=== PATIENT | male | born 1930 | race Caucasian/White ===

== ENCOUNTER 2019-01-30 08:09 | Inpatient (IN) | payer MEDICARE, OTHER ==
[2019-01-30 08:37] LABS: #Eosinphils 0.1 thou/uL (0.0-0.7); #Lymphocytes 0.7 thou/uL (1.20-3.40); #Monocytes 0.4 thou/uL (0.11-0.59); #Neutrophils 5.1 thou/uL (1.40-6.50); %Basophils 0.2 % (0.0-1.0); %Eosinophils 1.1 % (0.0-10.0); %Lymphocytes 11.2 % (21.0-51.0); %Monocytes 6.4 % (0.0-10.0); %Neutrophils 81.2 % (42.0-75.0); Hemoglobin 12.7 g/dL (14.0-18.0); Mean Corpuscular HGB CONC 31.4 g/dL (32.0-36.0); Mean Corpuscular Hemoglobin 26.6 pg (27.0-31.0); Mean Corpuscular Volume 84.8 fL (78.0-98.0); Mean Platelet Volume 8.4 fL (7.4-10.4); Platelet Count 171 thou/uL (130-400); RBC Distribution Width 13.3 % (11.5-14.5); Red Blood Cell (RBC) Count 4.78 mill/uL (4.70-6.10); White Blood Cell (WBC) Count 6.3 thou/uL (4.8-10.8)
[2019-01-30 08:59] LABS: ALT (SGPT) 10 U/L (8-55); AST (SGOT) 20 U/L (5-34); Alkaline Phosphatase 136 U/L (40-110); Anion Gap 15 mmol/L (10-20); BUN (Urea Nitrogen) 17 mg/dL (8.4-25.7); CK (CPK) 140 U/L (30-200); Calc. Creatinine Clearance 0 mL/min (70-130); Calcium 8.8 mg/dL (7.8-10.44); Carbon Dioxide 27 mmol/L (23-31); Chloride 99 mmol/L (98-107); Estimated GFR-MDRD Greater than 90; Globulin 2.7 g/dL (2.4-3.5); Glucose 86 mg/dL (83-110); Potassium 4.4 mmol/L (3.5-5.1); Protein, Total 6.7 g/dL (5.8-8.1); Sodium 137 mmol/L (136-145)
--- NOTE | 2019-01-30 09:11 | RAD ---
Exam: Chest one view HISTORY:Weakness Comparison: 04/16/2014, 01/30/2016 FINDINGS: Cardiac silhouette:Enlarged. Aorta: Atherosclerosis Pulmonary vessels: Normal Costophrenic angles: Clear LUNGS: Hyperinflation with chronic changes. No mass or consolidation. Pneumothorax: None Osseous abnormalities: None IMPRESSION: No acute cardiopulmonary process. Atherosclerosis
--- NOTE | 2019-01-30 09:13 | CT ---
Exam: Head CT without contrast HISTORY: Injury. Weakness. COMPARISON: 01/06/2016 FINDINGS: Hemorrhage: No intraparenchymal hemorrhage or extra-axial hematoma. Brain parenchyma: Stable malacic and gliotic changes involving the left temporal lobe. The remainder the cerebrum demonstrates preservation of cortical soriano-white matter differentiation. White matter hypodensities due to chronic small vessel ischemic change.Stable beam attenuation artifact from aneur ysm clip in the left middle cranial fossa. Ventricular system: Ventricles and sulci are patent and symmetric. Calvarium: Stable postsurgical change. No fracture. Sinuses and mastoid air cells: Adequate aeration. IMPRESSION: No acute intracranial process.
[2019-01-30] MEDS ORDERED: Furosemide 40 MG/4 ML VIAL ONE (10:10)
[2019-01-30] MEDS ORDERED: Aspirin Chewable 81 MG TAB ONE (10:10)
[2019-01-30] MEDS ORDERED: methylPREDNISolone Sod Succ/PF 125 MG/2 ML VIAL ONE (10:10)
[2019-01-30 12:15] LABS: Troponin I 0.011 ng/mL (< 0.028)
[2019-01-30] MEDS ORDERED: Acetaminophen 325 MG TAB PO PRN (13:09)
[2019-01-30] MEDS ORDERED: Ondansetron PF 4 MG/2 ML Vial IVP PRN (13:09)
[2019-01-30] MEDS ORDERED: Enoxaparin Sodium 30 MG/0.3 ML SYRINGE SC SCH (13:15)
[2019-01-30 13:34] LABS: Bacteria/HPF None Seen HPF (None Seen); Bilirubin Negative (Negative); Blood, Urine 3+ (Negative); Clarity Clear (Clear); Glucose, Urine (Dipstick) Normal (Negative); Leukocyte Negative Leu/uL (Negative); Nitrite Negative (Negative); Protein, Urine (Dipstick) Negative (Neg-Trace); RBC/HPF Greater than 50 HPF (0-3); Squamous Epithelial None Seen HPF (0-3); Urobilinogen Normal mg/dL (Less than 2); WBC/HPF 0-3 HPF (0-3)
--- NOTE | 2019-01-30 14:08 | ULT ---
BILATERAL RENAL ULTRASOUND: HISTORY: Urinary retention. COMPARISON: None. FINDINGS: Right kidney: Normal cortical echotexture. No hydronephrosis. Right renal cortical thinning. Multiple cortical cysts, largest cyst measuring 6.3 x 6.7 x 7.6 cm. Right kidney measurements: 11.6 x 6.4 x 8.3 cm. Left kidney: Normal cortical echotexture. No hydronephrosis or left renal cortical thinning. Left kidney measurements 11.7 x 6.0 x 4.8 cm. Urinary bladder: Prostate gland: Enlarged and heterogeneous measuring 6.9 x 5.4 x 5.2 cm. Incidental gallstones, incom pletely evaluated. IMPRESSION: 1. No hydronephrosis. 2. Bilateral renal cortical thinning. 3. Right renal cortical cyst. 4. Enlarged heterogeneous prostate gland. 5. Incidental gallstones. Transcribed Date/Time: 01/30/2019 2:15 PM
--- NOTE | 2019-01-30 14:42 | HP ---
CHIEF COMPLAINT: Shortness of breath, status post fall. HISTORY OF PRESENT ILLNESS: The patient is an 88-year-old male, who lives alone and sustained a fall yesterday and was short of breath without fever or chills with some productive cough, which is chronic, and the patient was seen by his daughter, and he was brought to the emergency room for further evaluation of his problem. Apparently, he had some pain in his right shoulder and right elbow for approximately couple of weeks before the fall, and he was blaming this problem for his arthritis. Since his right elbow was swollen, the patient's daughter made decision to take him to the emergency room for further evaluation. He denied any other problems. He is hard of hearing. He was seen in the hospital last time 3 years ago for altered mental status. At this time, he was diagnosed with atrial fibrillation, but he refused anticoagulation treatment. PAST MEDICAL HISTORY: Positive for: 1. Intracranial aneurysm. 2. Congestive heart failure. 3. Atrial fibrillation, which is chronic. PAST SURGICAL HISTORY: 1. Brain aneurysm surgery. 2. Hernia surgery. FAMILY HISTORY: Noncontributory. SOCIAL HISTORY: The family denies that he smokes or he drinks alcohol for many years since the time when he had surgery for his aneurysm, which was very long time ago. Also, he denied any illicit drug use. ALLERGIES: NONE. CURRENT MEDICATIONS: 1. Lisinopril 10 mg once a day. 2. Furosemide 20 mg once a day. 3. Symbicort now-dose. 4. Aspirin 324 mg once a day. But according to the daughter, he was not taking the medicines recently for unknown reason. REVIEW OF SYSTEMS: CONSTITUTIONAL: Negative for fever or chills. EYES: Negative for eye pain or eye discharge. ENT: Negative for nasal congestion or sore throat. CARDIOVASCULAR: Negative for chest pain or palpitations. RESPIRATORY: Positive for shortness of breath and cough, which is chronic. GI: Negative for abdominal pain or diarrhea. GENITOURINARY: Positive for some frequency. MUSCULOSKELETAL: Positive for the pain in his shoulder and elbow. NEUROLOGIC: Negative for convulsions, paralysis, or tremor. ALLERGIES: Negative for skin rash. ENDOCRINOLOGY: Negative for polyuria or polydipsia. PHYSICAL EXAMINATION: VITAL SIGNS: Blood pressure is 150/73, pulse is 84, respirations are 19, O2 saturation is 95% on 2 L by O2. GENERAL: He is hard of hearing. He is an elderly man. HEENT: His head is atraumatic and normocephalic. Eyes; pupils are responding to light properly. Sclerae are nonicteric. Conjunctivae are pinkish. Oral mucosa is moist. NECK: Supple. LUNGS: Emphysematous with few crackles at both bases. HEART: S1 and S2, somewhat distant. No S3. Irregularly irregular. No S4. ABDOMEN: Soft, nontender, and nondistended. EXTREMITIES: 1 to 2+ peripheral edema, similar bilaterally with venous stasis bilaterally below the knees and secondary chronic changes on the top of that. A lot of scaling in the bilateral calves and both feet. NEUROLOGIC: He follows my commands. He moves his all 4 extremities. There are no any motor deficits. LABORATORY DATA: Showed white count of 6.3, hemoglobin 12.7, hematocrit 40.5, platelet count is 171,000. Normal chemistry except for alkaline phosphatase which is 136 and BNP which is 299.5. Troponin I is 0.011. The rest of chemistry is within normal limits. EKG showed atrial fibrillation with controlled ventricular rate and some PVCs and right bundle-branch block. Brain CT, personally reviewed by me, did not show any acute abnormalities. No acute stroke. There are some stable malacic and gliotic changes involving the left temporal lobe. There are chronic small-vessel ischemic changes. Chest x-ray showed just hyperinflated lungs bilaterally. This was personally reviewed by me. IMPRESSION: 1. Shortness of breath with signs of emphysema and possible congestive heart failure. The patient has a history of both. His pulse oximetry was down to low 90s on room air. 2. Status post fall and some right shoulder and right elbow pain clinically. There is no any evidence of significant injury. 3. History of chronic obstructive pulmonary disease. 4. History of atrial fibrillation, chronic, not on anticoagulation chosen by the patient during previous admission to this hospital. 5. Noncompliance. The patient was not taking his medications recently like he was supposed to. 6. History of intracranial aneurysm and status post brain aneurysm surgery. 7. Hard of hearing. 8. Urinary retention. Apparently, while in the emergency room, his bladder was scanned, and he had more than 600 mL of urine in the urinary bladder. PLAN: Full admission to telemetry floor with above-mentioned diagnoses, possible congestive heart failure and chronic obstructive pulmonary disease, mild exacerbation. IV Hep-Lock. Echocardiogram with 2-dimensional Doppler. Heart-healthy diet. Activities, can ambulate with assistance. DuoNeb q.4 hours. Prednisone 40 mg once a day. Lasix 20 mg IV push q.12 hours. Follow up with labs. DVT prophylaxis with Lovenox 30 mg subcutaneously every 24 hours. Prostate ultrasound and bone scan to rule out prostate malignancy with metastasis to the bones since his alkaline phosphatase is elevated and he presents with urinary retention. Also, we will start him on alpha joelle, and we will get PT and OT. Job ID: [id number]
[2019-01-30 15:17] LABS: Troponin I 0.026 ng/mL (< 0.028)
[2019-01-30] MEDS: Famotidine 20 MG TAB PO SCH (20:46)
[2019-01-30] MEDS: Tamsulosin HCl 0.4 MG CAP PO SCH (20:46)
[2019-01-31 04:55] LABS: #Lymphocytes 0.4 thou/uL (1.20-3.40); #Monocytes 0.3 thou/uL (0.11-0.59); #Neutrophils 5.7 thou/uL (1.40-6.50); %Eosinophils 0.1 % (0.0-10.0); %Lymphocytes 5.7 % (21.0-51.0); %Monocytes 4.1 % (0.0-10.0); %Neutrophils 90.1 % (42.0-75.0); Hemoglobin 11.3 g/dL (14.0-18.0); Mean Corpuscular HGB CONC 32.6 g/dL (32.0-36.0); Mean Corpuscular Hemoglobin 26.8 pg (27.0-31.0); Mean Corpuscular Volume 82.3 fL (78.0-98.0); Mean Platelet Volume 8.8 fL (7.4-10.4); Platelet Count 146 thou/uL (130-400); White Blood Cell (WBC) Count 6.4 thou/uL (4.8-10.8)
[2019-01-31 05:19] LABS: Anion Gap 13 mmol/L (10-20); BUN (Urea Nitrogen) 24 mg/dL (8.4-25.7); Calc. Creatinine Clearance 53 mL/min (70-130); Carbon Dioxide 27 mmol/L (23-31); Chloride 98 mmol/L (98-107); Estimated GFR-MDRD 78; Potassium 3.6 mmol/L (3.5-5.1); Sodium 134 mmol/L (136-145)
[2019-01-31 05:20] LABS: Calcium 8.4 mg/dL (7.8-10.44); Glucose 142 mg/dL (83-110)
[2019-01-31] MEDS: Furosemide 20 MG/2 ML VIAL SLOW IVP SCH ×2 (05:40→15:08)
[2019-01-31] MEDS: Aspirin 325 mg Enteric Coated Tablet PO SCH (08:39)
[2019-01-31] MEDS: predniSONE 20 MG TAB PO SCH (08:39)
[2019-01-31] MEDS: Famotidine 20 MG TAB PO SCH ×2 (08:39→20:58)
[2019-01-31] MEDS: Lisinopril 10 MG TAB PO SCH (08:40)
[2019-01-31] MEDS ORDERED: Sodium Chloride 0.9% 1,000 ML IV SCH (10:15)
--- NOTE | 2019-01-31 13:16 | NM ---
WHOLE BODY BONE SCAN: HISTORY: Prostate cancer RADIOPHARMACEUTICAL: 33 mCi technetium 99m-MDP injected intravenously COMPARISON: None CORRELATION: None FINDINGS: There is increased uptake in the area of T4, T5, T9, L5 vertebrae, left eighth rib and right fifth ri b, pelvic bones and the lesser trochanter of the right femur. There scattered degenerative activity in the appendicular skeleton. Tiny focus of increased uptake in the distal left leg is nonspecific. Tracer excretion through the kidneys is within normal limits. IMPRESSION: Findings are consistent with osseous metastatic disease.
[2019-01-31] MEDS ORDERED: FLU VACC TS2019-20(65YR UP)/PF 180 MCG/0.5 ML SYRINGE IM ONE (14:45)
--- NOTE | 2019-01-31 18:50 | PRG ---
DATE OF SERVICE: 01/31/2019 SUBJECTIVE: The patient is seen at bedside, is not in distress. His shortness of breath better. Denies nausea, vomiting, or diarrhea. Has Naidu catheter in place. LABORATORY DATA: CBC unremarkable except hemoglobin 11.3. BMP unremarkable except sodium 134. Troponins x3 negative. UA negative. Bone scan positive for osseous metastatic disease T4-T5 and L5 vertebra, left 8th rib and right 5th rib, pelvic bones and the lesser trochanteric of the right femur. Renal ultrasound, no hydronephrosis. Bilateral renal cortical thickening. Right renal cortical cyst. Enlarged heterogeneous prostate gland. IMPRESSION: 1. Shortness of breath, most likely combination of acute congestive heart failure and possible component of chronic obstructive pulmonary disease exacerbation. The patient currently feels better. Continue diuretics. Continue nebulization as needed. 2. Status post fall with right shoulder pain. Continue pain medication as needed. 3. Chronic obstructive pulmonary disease exacerbation. Continue nebs. 4. History of atrial fibrillation, not on anticoagulation at home. 5. History of intracranial aneurysm, status post brain aneurysm surgery. 6. H/o BPH with urinary retention. U/S shows heterogenous prostate Bone scan shows possible bone metastasis. recommend Urology and Hematology-Oncology evaluation possible out patient 7. Deep venous thrombosis and gastrointestinal prophylaxis. We will discuss the plan with daughter in the morning. Job ID: [id number] [facility]
[2019-01-31] MEDS: Tamsulosin HCl 0.4 MG CAP PO SCH (20:59)
[2019-02-01 04:38] LABS: #Lymphocytes 0.4 thou/uL (1.20-3.40); #Monocytes 0.6 thou/uL (0.11-0.59); #Neutrophils 6.2 thou/uL (1.40-6.50); %Eosinophils 0.2 % (0.0-10.0); %Lymphocytes 5.9 % (21.0-51.0); %Monocytes 7.9 % (0.0-10.0); %Neutrophils 85.9 % (42.0-75.0); Hemoglobin 11.1 g/dL (14.0-18.0); Mean Corpuscular HGB CONC 32.1 g/dL (32.0-36.0); Mean Corpuscular Hemoglobin 26.4 pg (27.0-31.0); Mean Corpuscular Volume 82.2 fL (78.0-98.0); Mean Platelet Volume 8.5 fL (7.4-10.4); Platelet Count 159 thou/uL (130-400); RBC Distribution Width 13.2 % (11.5-14.5); Red Blood Cell (RBC) Count 4.22 mill/uL (4.70-6.10); White Blood Cell (WBC) Count 7.2 thou/uL (4.8-10.8)
[2019-02-01 04:55] LABS: Anion Gap 12 mmol/L (10-20); BUN (Urea Nitrogen) 22 mg/dL (8.4-25.7); Calc. Creatinine Clearance 61 mL/min (70-130); Calcium 8.4 mg/dL (7.8-10.44); Carbon Dioxide 31 mmol/L (23-31); Chloride 97 mmol/L (98-107); Estimated GFR-MDRD Greater than 90; Glucose 111 mg/dL (83-110); Potassium 3.2 mmol/L (3.5-5.1); Sodium 137 mmol/L (136-145)
[2019-02-01] MEDS: Furosemide 20 MG/2 ML VIAL SLOW IVP SCH ×2 (06:23→14:48)
[2019-02-01] MEDS: predniSONE 20 MG TAB PO SCH (09:05)
[2019-02-01] MEDS: Famotidine 20 MG TAB PO SCH ×2 (09:06→20:52)
[2019-02-01] MEDS: Aspirin 325 mg Enteric Coated Tablet PO SCH (09:06)
[2019-02-01] MEDS: Lisinopril 10 MG TAB PO SCH (09:06)
[2019-02-01] MEDS ORDERED: Iopamidol-370 76% 500 ML 1 ML ONE (13:53)
[2019-02-01] MEDS ORDERED: Potassium Chloride 20 MEQ TAB PO SCH (14:45)
--- NOTE | 2019-02-01 15:25 | PRG ---
DATE OF SERVICE: 02/01/2019 SUBJECTIVE: The patient seen at bedside. Shortness of breath is better. Able to go to bathroom. Denies nausea, vomiting, or diarrhea. Presented with Naidu catheter placement due to urinary retention and fall and shortness of breath. OBJECTIVE: VITAL SIGNS: Blood pressure 105/57, temperature 98.6, pulse 94, respirations 18, oxygen saturation 96%. GENERAL: The patient with generalized wasting, lying in bed comfortably, not in distress. HEENT: Conjunctivae are normal. Oral mucosa moist. NECK: Supple. No JVD. No lymphadenopathy. CHEST: Decreased air entry in bilateral lower lung oseguera. HEART: Sounds normal. ABDOMEN: Soft, benign, and nontender. No visceromegaly. EXTREMITIES: Negative edema of feet. SKIN: No rash. No cyanosis. LABORATORY DATA: BMP unremarkable except potassium 3.2. ProBNP 269. CBC unremarkable except hemoglobin 11.1. IMPRESSION: 1. Shortness of breath, most likely combination of acute congestive heart failure and possible diastolic congestive heart failure as echo performed in 2015 showed a normal EF and possible component of chronic obstructive pulmonary disease exacerbation. The patient currently feeling better. We will change diuretics to p.o. Continue nebulization. 2. Status post fall with right shoulder pain. Continue pain medication as needed. 3. History of atrial fibrillation, not on anticoagulation. 4. History of intracranial aneurysm, status post brain aneurysm surgery in the past. 5. Heterogeneous prostate on renal ultrasound and acute urinary retention with bone scan shows vertebral and ribs metastasis. We will get inpatient Urology evaluation and will recommend outpatient Oncology evaluation. 6. Deep venous thrombosis and gastrointestinal prophylaxis. PLAN: Discussed with daughter, Manju, on phone, updated her bone scan findings and renal ultrasound findings. The patient has possible history of BPH, but daughter denies any history of prostate cancer. Possible disposition, next 24 to 48 hours. Job ID: [id number]
--- NOTE | 2019-02-01 19:50 | CT ---
Exam: Abdomen and pelvic CT scan with and without IV contrast with urography protocol HISTORY: Hematuria FINDINGS: Small bilateral pleural effusions. Bibasilar parenchymal changes evidence for bilateral pneumonitis a nd/or subsegmental atelectasis. There is cardiomegaly. The visualized liver, gallbladder, pancreas, spleen, and adrenal glands are unremarkable. Multiple bilateral renal cysts up to 6.5 cm on the right side. No evidence for renal calculus or acute obstruction. There is extensive adenopathy including the retroperitoneal regions with an aortocaval node which measures 3.7 cm multiple periaort ic lymph nodes as well as adenopathy in the iliac chain and left upper pelvic adenopathy up to 4.1 cm. There are numerous other abnormally enlarged lymph nodes throughout the pelvis. There is a very m arkedly enlarged very multinodular prostate mass which markedly elevates the floor the bladder. This mass is difficult to measure but at least is 7.1 x 8.8 cm in size with a posterior right-sided e xtension of this mass which is approximately 5 cm in size evidence for advanced prostate malignancy with associated adenopathy. Large left inguinal hernia containing multiple small bowel loops without evidence for incarceration or high-grade obstruction. There are scattered areas of sclerotic density within the visualized bones most prominent of which is involving the left S1 vertebral region as well as the left sacral alar region and the right medial ilium adjacent to the SI joint evidence for bone metastasis. IMPRESSION: Very marked multinodular appearing prostate gland with a a very large exophytic nodule evidence for a dvanced prostate malignancy. Extensive adenopathy most marked in the pelvis but extending in the retroperitoneum regions to the level of the upper abdomen as above. No evidence for acute obstruct ion. Renal cysts. Very large left inguinal hernia containing small bowel without evidence for obstruction. Numerous bone metastasis.
[2019-02-01] MEDS: Docusate 100 MG CAP PO SCH (20:52)
[2019-02-01] MEDS: Tamsulosin HCl 0.4 MG CAP PO SCH (20:52)
--- NOTE | 2019-02-02 01:20 | CON ---
DATE OF CONSULTATION: 02/01/2019 PRIMARY CARE PHYSICIAN: Dr. Jovanni Pack. REASON FOR CONSULTATION: Urinary retention, rule out prostate cancer. HISTORY OF PRESENT ILLNESS: Mr. Watson is an 88-year-old male with history of congestive heart failure, brain aneurysm, history of atrial fibrillation followed by Dr. Dimas. The patient previously underwent right inguinal hernia repair by Dr. Gabriel. He is currently admitted as he sustained a fall. He is hard of hearing, somewhat of a poor historian. Much of the history is obtained per chart. He lives alone, called the emergency room due to a fall. Naidu catheter was placed in the emergency room. Per review of H and P, there was approximately 600 mL of postvoid residual upon placement of the catheter. He has been noncompliant with medical followup and treatment. He remains high risk for recurrent falls and high risk for chronic anticoagulation due to recurrent falls improved, history of aneurysm. He denies family history of prostate cancer, does relate that he has had decreased urinary caliber, however, denies incontinence. Decreased appetite over the last few months. Per patient, he has lost about 30 pounds. Bone scan was obtained by primary service demonstrating multiple lesions. PSA of record is not available. He currently has an indwelling Naidu catheter, which he is tolerating uneventfully. PAST MEDICAL HISTORY: Includes: 1. Right inguinal hernia. 2. Brain aneurysm. 3. CHF with prior echocardiogram demonstrating EF of 55% to 60%. 4. History of atrial fibrillation followed by Dr. Dimas. Dr. Gabriel is general surgery. PAST SURGICAL HISTORY: April 17, 2014, right inguinal hernia repair, brain aneurysm, craniotomy repair in 1980s. FAMILY HISTORY: Negative for prostate cancer. Family history of coronary artery disease. CODE STATUS: Full. ALLERGIES: NO KNOWN DRUG ALLERGIES. CURRENT MEDICATIONS: Include: 1. Tylenol. 2. DuoNeb. 3. Pepcid. 4. Lasix 40 mg one p.o. daily. 5. Zofran. 6. Prednisone 40 mg. 7. Zofran. 8. Flomax was initiated by Primary Service on arrival one p.o. daily. Home medications above includin. Aspirin. 2. Albuterol. 3. Lisinopril. REVIEW OF SYSTEMS: Ten-point review of systems as above, otherwise noncontributory. PHYSICAL EXAMINATION: VITAL SIGNS: 98.6, 16, 98% on room air, blood pressure 110/58. I's and O's 722 in and 1300 out. Over 1400 mL of concentrated yellow urine. GENERAL: The patient is an unkempt elderly frail appearing male with poor dentition. HEENT: As above. HEART: Irregular, however, regular rate. LUNGS: Decreased inspiratory effort, intermittent wheezing. ABDOMEN: Soft, nontender, and nondistended. No suprapubic tenderness or distention is appreciated. There is evidence of a large left inguinal hernia causing enlargement of his scrotum, which is partially reduced. Bilateral testes are descended with no evidence of intratesticular mass. Digital rectal exam demonstrates diffusely firm nodular prostate consistent with prostate cancer. EXTREMITIES: Demonstrate chronic scaling of his lower extremities, likely consistent with chronic venous stasis. No calf tenderness is grossly appreciated. Naidu catheter has a 3-way temperature sensor in place. I did resect his Naidu catheter with two StatLock. There was some old dry blood at the meatus. Digital rectal exam is above irregular. PSYCHIATRIC: Appears to be appropriate and intact. NEUROLOGIC: No gross focal deficits are appreciated. PERTINENT LABORATORY DATA AND IMAGING: White count is 7, hemoglobin 11, platelet 159, creatinine 0.7. Alkaline phosphatase is elevated at 136. Previous alkaline phosphatase was unremarkable, December 2015. UA which is a catheterized specimen demonstrates no evidence of bacteria, greater than 50 rbc's, 0-3 wbc's, 3+ blood. PERTINENT IMAGIN. Renal ultrasound was obtained January 30, demonstrating no evidence of hydronephrosis. There is heterogeneous enlarged prostate measuring 6.9 x 5.4 x 5.2 cm in which prostate volume based on those parameters per my review will be approximately 100 g. There is multiple bilateral renal cysts, but no evidence of hydronephrosis. 2. Incidental gallstones. 3. Bone scan on this admission: Consistent with bony metastatic disease including T4-T5, T9, L5, left 8th rib, pelvic bones, greater trochanter, right femur. IMPRESSION AND PLAN: Mr. Watson is an 88-year-old male with past medical history of: 1. Chronic obstructive pulmonary disease, peripheral vascular disease, atrial fibrillation, brain aneurysm, history of inguinal hernia, presents with recurrent fall. I do believe patient is a high risk for anticoagulation due to recurrent fall in his frail nature. 2. Urologic issues of urinary retention of PVR 600 mL on admission. Naidu catheter currently in place. Recommend Flomax, however, increase to b.i.d. and add Avodart. 3. Grossly abnormal IVAN with bone scan demonstrating metastatic disease, likely consistent with prostate cancer. will obtain PSA. I do expect the PSA to be elevated as he has enlarged prostate and retention. However, looking for a PSA for significant increase consistent with metastatic disease. The patient has been informed regarding differential diagnosis of metastatic prostate cancer. Recommend continuing indwelling urethral Naidu catheter due to PVR of 600 mL on arrival. We will need bladder rest to proceed with voiding trial at a later date. Allow bladder rest for now. Continue BPH medications as advised. 4. Significant left inguinal hernia, partially reducible. I will obtain a CT hematuria protocol, to stage regarding prostate cancer and evidence of microscopic hematuria, likely due to retention, enlarged prostate. Consider General Surgery evaluation as his hernia is quite large. Prostate biopsy can be performed at a later date as he is currently on aspirin. I will discontinue his aspirin as this needs to be held prior to his prostate biopsy, which I can perform in the office. Job ID: [id number] [facility]
[2019-02-02 05:19] LABS: Anion Gap 10 mmol/L (10-20); BUN (Urea Nitrogen) 19 mg/dL (8.4-25.7); Calc. Creatinine Clearance 65 mL/min (70-130); Calcium 8.5 mg/dL (7.8-10.44); Carbon Dioxide 35 mmol/L (23-31); Chloride 96 mmol/L (98-107); Estimated GFR-MDRD Greater than 90; Glucose 117 mg/dL (83-110); Potassium 3.7 mmol/L (3.5-5.1); Sodium 137 mmol/L (136-145)
--- NOTE | 2019-02-02 07:35 | PRG ---
DATE OF SERVICE: 02/02/2019 SUBJECTIVE: No new complaints. Patient alert, awake. Vital signs are stable; 900 of urine output, concentrated, yellow. Abdomen is soft, nontender, nondistended. No rigidity. No rebound. As previous, there is a large left inguinal hernia. PERTINENT LABS: Creatinine is 0.7. PSA is 1490. CT result, which I reviewed myself, demonstrates diffuse retroperitoneal periaortic lymphadenopathy. Prostate is grossly enlarged, multinodular, measuring 7.1 x 8.8 cm, there is extension of this mass about 5 cm in the lower pelvis consistent with adenopathy. Large left inguinal hernia with multiple small bowel loops without evidence of high-grade obstruction. Multiple bony metastatic disease. Bilateral renal cysts, largest on the right, measuring 6.5 cm. There is no evidence of hydronephrosis. Per my review, the prostatic mass is impinging on the floor of the bladder. The ureters are inserting close to the mass; however, no evidence of hydronephrosis is appreciated. IMPRESSION AND PLAN: Mr. Watson is an 88-year-old male admitted for; 1. Generalized weakness. 2. Recent fall, history of recurrent falls. 3. Urinary retention; per ER, 600 cc of postvoid residual. Flomax and Avodart initiated on consult. Continue indwelling Naidu catheter for now. 4. Grossly abnormal digital rectal exam with metastatic disease. PSA is consistent with prostate cancer and metastatic disease. His aspirin was just discontinued on this admission; therefore, prostate biopsy will need to be performed at a later date. Casodex has been initiated. patient has limited social support as he lives alone. Case management consult is indicated as the patient will benefit from a nursing facility or fdc as he has lost significant weight/frail, with recurrent falls. Consider hospice palliative care consult. Medical Oncology has been consulted. Informed the patient regarding his diagnosis, prognosis and diffusely metastatic advanced prostate cancer. Job ID: [id number] [facility]
[2019-02-02] MEDS: Furosemide 40 MG TAB PO SCH (07:59)
[2019-02-02] MEDS ORDERED: Aspirin 325 MG TAB PO SCH (09:00)
[2019-02-02] MEDS ORDERED: Lisinopril 10 MG TAB PO SCH (09:00)
[2019-02-02] MEDS: predniSONE 20 MG TAB PO SCH (09:01)
[2019-02-02] MEDS: Dutasteride 0.5 MG CAP PO SCH (09:02)
[2019-02-02] MEDS: Tamsulosin HCl 0.4 MG CAP PO SCH ×2 (09:02→20:26)
[2019-02-02] MEDS: Docusate 100 MG CAP PO SCH (09:02)
[2019-02-02] MEDS: Famotidine 20 MG TAB PO SCH (09:02)
[2019-02-02] MEDS: Bicalutamide 50 MG TAB PO SCH (09:04)
--- NOTE | 2019-02-02 12:46 | PDOC.HOSPP ---
- Subjective Encounter Date: 02/02/19 Encounter Time: 12:43 Subjective: Chief Complaint: Back pain, Shortness of breath Subjective: Patient complains of diffuse pain in trunk and back, also complains of shortness of breath and minimal exertion, alert and oriented and comprehends all I say. Discussed diagnosis with patient, he was told just this morning about the cancer diagnosis and is interested in knowing the plan. He is weak and has trouble ambulating. All questions answered to the best of my abilities. - Objective Vital Signs & Weight: Vital Signs (12 hours) Temp Pulse Resp BP Pulse Ox 02/02/19 11:29 96.9 F L 96 18 120/67 98 02/02/19 10:42 87 16 92 L 02/02/19 08:02 97.6 F 80 19 112/57 L 94 L 02/02/19 06:59 80 16 92 L 02/02/19 04:00 97.6 F 88 18 118/62 92 L 02/02/19 02:16 93 20 91 L Weight Admit Weight 150 lb Weight 145 lb 6 oz I&O: 02/01/19 02/02/19 02/03/19 06:59 06:59 06:59 Intake Total 1080 720 Output Total 1500 1850 Balance -420 -1130 Result Diagrams: 02/01/19 04:01 02/02/19 04:15 Hospitalist ROS - Medication Medications: Active Medications Generic Name Dose Route Start Last Admin Trade Name Freq PRN Reason Stop Dose Admin Albuterol/Ipratropium 3 ml 01/30/19 14:30 02/02/19 10:42 Duoneb NEB 3 ml [id number] ARTHUR Administration Bicalutamide 50 mg 02/02/19 09:00 02/02/19 09:04 Casodex PO 50 mg DAILY ARTHUR Administration Docusate Sodium 100 mg 02/01/19 21:00 02/02/19 09:02 Colace PO 100 mg BID ARTHUR Administration Dutasteride 0.5 mg 02/02/19 09:00 02/02/19 09:02 Avodart PO 0.5 mg DAILY ARTHUR Administration Famotidine 20 mg 01/30/19 21:00 02/02/19 09:02 Pepcid PO 20 mg BID ARTHUR Administration Furosemide 40 mg 02/02/19 07:30 02/02/19 07:59 Lasix PO 40 mg DAILY-AC ARTHUR Administration Prednisone 40 mg 01/31/19 08:00 02/02/19 09:01 Prednisone PO 40 mg [id number] ARTHUR Administration Tamsulosin HCl 0.4 mg 02/01/19 21:00 02/02/19 09:02 Flomax PO 0.4 mg BID ARTHUR Administration - Exam General Appearance: NAD, awake alert Eye: PERRL, anicteric sclera ENT: normocephalic atraumatic, moist mucosa Neck: supple, no JVD Heart: RRR, no murmur, no gallops, no rubs Respiratory: CTAB, no wheezes, no rales, no ronchi Gastrointestinal: soft, non-tender, non-distended, normal bowel sounds Extremities: no cyanosis, no clubbing, no edema Skin: no lesions, no rashes Neurological: cranial nerve grossly intact, normal sensation to touch, no weakness, no focal deficits Musculoskeletal: normal tone, normal strength Psychiatric: normal affect, normal behavior, A&O x 3 Hosp A/P - Plan Consults: Palliative Care Patient is an 88 year old male being treated for: # acute and chronic diastolic heart failure - continue diuresis, echo 2015 with normal EF, will order repeat today, per chart review appears improved since admission # metastatic prostate cancer - patient informed of diagnosis today - PT/OT/case management consults placed, predict patient would benefit from assisted facility placement - palliative care consulted as well - CT A/P revealed large prostate mass, extensive adenopathy concerning for lymphangitis spread, evidence of bony metastases in spine and pelvis - nuclear medicine bone scan with diffuse areas concerning for metastatic disease in ribs, pelvis, femur, spine # bilateral renal cysts - noted on CT, monitor, renal US without hydronephrosis # acute urinary retention - chua in place, urology consulted, on BID flomax and avodart, wean chua per urology recommendations # L inguinal hernia - noted on CT, no obstructions, symptoms more consistent with other diagnoses above than hernia issues # s/p fall w/ R shoulder pain - rehab evaluation, PRN pain medicaiton # history of atrial fibrillation - not on anticoagulation long-term, should see developer architect as outpatient, DVT ppx dose anticoagulation while here - recent fall with shoulder trauma, # history of intracranial aneurysm w/ surgery in past - noted # DVT/GI ppx Code status: currently full Disposition - therapy and case management consults for rehab evaluation -> suspect SNF will be best placement option - patient has been told about diagnosis, wants to tell family himself, offered assistance if patient should change his mind and want us to inform family or come to family discussion, please page sound physicians if patient makes such a request - palliative care and medical oncology consults - continue pain management, follow echo, bowel regimen, chua catheter may be needed usp - Manju, daughter [phone] discussed case with my partner on 02/01/19 per chart review 50 minutes care time over half of which counselling and coordination of care
[2019-02-02] MEDS ORDERED: hydrALAZINE 20 MG/ML VIAL SLOW IVP PRN (12:48)
[2019-02-02] MEDS ORDERED: cloNIDine 0.1 MG TAB PO PRN (12:48)
--- NOTE | 2019-02-02 18:32 | PDOC.EVN ---
Event Note - Event Note Event Note: Discussed with patient daughter Manju, relayed findings of current tests and diagnosis of metastatic prostate cancer to bones/nodes. Needs for rehab and SNF explained as well as well as possibility of hospice, patient of cancer as well, Manju suspects her dad would not want to go through that as well and may opt for hospice, palliative care and oncology consulted to assist, should do MPOA paperwork this admission too
[2019-02-02] MEDS: Senokot S 8.6-50 MG TAB PO SCH (20:26)
--- NOTE | 2019-02-02 22:25 | CON ---
DATE OF CONSULTATION: REASON FOR CONSULTATION: Prostate cancer. HISTORY OF PRESENT ILLNESS: Mr. Watson is an 88-year-old male, who had a fall on the and was short of breath. He was brought to the emergency room by his daughter for further evaluation. He was complaining of some back pain, and underwent a renal ultrasound, which showed the prostate gland enlarged measuring 6.9 x 5.4 x 5.2. A PSA was drawn, which was close to 1500. Dr. Garcia was consulted. She started the patient on Casodex. The patient had a nuclear medicine bone scan, which showed diffuse bone metastasis. He also underwent an abdominal and pelvic CT scan. There was a multinodular-appearing prostate gland and a large exophytic nodule. There was a pelvic mass measuring 7.1 x 8.8 cm. He had a large left inguinal hernia. He had extensive adenopathy in the pelvis and upper abdomen. The patient has a history of atrial fibrillation and is on anticoagulation. No biopsy was performed. We were asked to see the patient regarding treatment options. PAST MEDICAL HISTORY: 1. Congestive heart failure. 2. Atrial fibrillation. 3. Intracranial aneurysm. PAST SURGICAL HISTORY: Brain aneurysm and hernia repair. ALLERGIES: NO KNOWN DRUG ALLERGIES. HOME MEDICATIONS: 1. Aspirin. 2. Lasix. 3. Lisinopril. FAMILY HISTORY: Unknown. SOCIAL HISTORY: Remote history of alcohol and tobacco use. The patient is , lives alone. REVIEW OF SYSTEMS: Positive for back pain and dysuria. Otherwise, negative. PHYSICAL EXAMINATION: VITAL SIGNS: Temperature is 98.1, pulse 92, respiratory rate 18, BP is 120/67, he is 93% on room air. GENERAL: This is a disheveled male, in no acute distress. HEENT: Normocephalic, atraumatic. Pupils are equal and reactive to light. NECK: Supple. CV: Regular rate and rhythm. LUNGS: Diminished throughout. He has barrel chest. ABDOMEN: Soft and nontender. Bowel sounds are positive. EXTREMITIES: No clubbing or cyanosis. SKIN: He has chronic vascular skin discoloration of bilateral lower extremities. HEMATOLOGICAL: There is no petechiae or purpura. NEUROLOGICAL: Nonfocal. PSYCHIATRIC: He is alert, oriented and appropriate. PERTINENT LABS AND X-RAYS: Current WBCs are 7.2, hemoglobin 11.1, hematocrit 34.7, platelet count 159,000. He has 86% neutrophils, 6% lymphocytes. Sodium is 137, potassium 3.7, chloride 96, CO2 is 35, BUN is 19, creatinine 0.74. PSA is 1490. Bilirubin is 1, AST is 20, ALT is 10, and alkaline phosphatase is 136. Serum total protein is 6.7, albumin 4.0, globulin 2.7. Radiology per HPI. ASSESSMENT: Metastatic prostate cancer with a large pelvic mass, lymphadenopathy and bone metastasis. DISCUSSION: The patient has elevated PSA, abnormal digital exam and bone metastasis, all consistent with metastatic prostate cancer. He has been started on Casodex and can be transitioned to Lupron after several weeks of Casodex in order to avoid flare. No prostate biopsy is needed at this time as his PSA is diagnostic. The patient lives alone and has no social support. He has lost significant weight and now is frail with recurrent falls. It is unlikely that he would tolerate chemotherapy with Taxotere. This will need to be discussed further with his daughter, who was not present today. Most likely the patient will need to go to either a correction or fdc unit, where he can continue Casodex and eventually start Lupron. I have asked Palliative Care to see the patient to assist with goals of care and advance directives. Case has been discussed with Dr. Paniagua. We will follow up with this patient during this hospitalization. Job ID: [id number]
[2019-02-03 04:47] LABS: #Lymphocytes 0.6 thou/uL (1.20-3.40); #Monocytes 0.8 thou/uL (0.11-0.59); #Neutrophils 7.9 thou/uL (1.40-6.50); %Basophils 0.2 % (0.0-1.0); %Eosinophils 0.4 % (0.0-10.0); %Lymphocytes 6.9 % (21.0-51.0); %Monocytes 8.1 % (0.0-10.0); %Neutrophils 84.4 % (42.0-75.0); Hemoglobin 12.6 g/dL (14.0-18.0); Mean Corpuscular HGB CONC 32.6 g/dL (32.0-36.0); Mean Corpuscular Hemoglobin 27.1 pg (27.0-31.0); Mean Corpuscular Volume 83.2 fL (78.0-98.0); Mean Platelet Volume 8.6 fL (7.4-10.4); Platelet Count 158 thou/uL (130-400); RBC Distribution Width 13.3 % (11.5-14.5); Red Blood Cell (RBC) Count 4.65 mill/uL (4.70-6.10); White Blood Cell (WBC) Count 9.3 thou/uL (4.8-10.8)
[2019-02-03 05:05] LABS: Anion Gap 11 mmol/L (10-20); BUN (Urea Nitrogen) 21 mg/dL (8.4-25.7); Calc. Creatinine Clearance 56 mL/min (70-130); Calcium 8.8 mg/dL (7.8-10.44); Carbon Dioxide 35 mmol/L (23-31); Chloride 95 mmol/L (98-107); Estimated GFR-MDRD 87; Glucose 99 mg/dL (83-110); Potassium 4.2 mmol/L (3.5-5.1); Sodium 137 mmol/L (136-145)
--- NOTE | 2019-02-03 07:58 | PRG ---
DATE OF SERVICE: 02/03/2019 SUBJECTIVE: The patient is resting, daughter at bedside. Chart reviewed, appreciate Medical Oncology consult. OBJECTIVE: VITAL SIGNS: Stable. He is 97, 18, 99, 153/83. I's and O's, 1625 of clear concentrated urine. ABDOMEN: Soft. No rigidity. No rebound. GENITOURINARY: Naidu catheter adequately secured. EXTREMITIES: No calf tenderness. PERTINENT LABORATORY DATA: White count 9, hemoglobin 12, and platelet 158. Renal function stable. Creatinine 0.83. IMPRESSION AND PLAN: 1. Mr. Watson is an 88-year-old male, who presents with recurrent fall. 2. Grossly abnormal digital rectal exam, PSA consistent with metastatic prostate cancer. I reviewed with daughter at bedside, regarding his clinical findings of metastatic prostate cancer and poor prognosis and limited life span. He has been started on Casodex, on BPH medications due to urinary retention. patient's daughter is fully aware regarding advanced cancer and desires palliative hospice care. This has been initiated. Continue current regimen now. Pending final disposition, I would consider a voiding trial prior to final disposition. If fail to void, which is high likelihood due to severely enlarged prostate due to cancer, he will have to be discharged with indwelling Naidu catheter for comfort care. Await final disposition. Job ID: [id number] [facility]
[2019-02-03] MEDS: Senokot S 8.6-50 MG TAB PO SCH ×2 (08:01→20:00)
[2019-02-03] MEDS: Bicalutamide 50 MG TAB PO SCH (08:01)
[2019-02-03] MEDS: predniSONE 20 MG TAB PO SCH (08:01)
[2019-02-03] MEDS: Furosemide 40 MG TAB PO SCH (08:01)
[2019-02-03] MEDS: Dutasteride 0.5 MG CAP PO SCH (08:01)
[2019-02-03] MEDS: Tamsulosin HCl 0.4 MG CAP PO SCH ×2 (08:02→20:00)
[2019-02-03] MEDS: Enoxaparin Sodium 40 MG/0.4 ML SYRINGE SC SCH (08:02)
[2019-02-03] MEDS ORDERED: Mineral Oil PER 1 ML PO SCH (10:07)
[2019-02-03] MEDS ORDERED: oxyCODONE 5 MG TAB PO PRN (10:09)
[2019-02-03] MEDS ORDERED: Acetaminophen 325 MG/10.15 ML UDCUP PO SCH (10:10)
[2019-02-03] MEDS ORDERED: cloNIDine 0.1 MG TAB PO PRN (10:12)
[2019-02-03] MEDS ORDERED: Ondansetron PF 4 MG/2 ML Vial IVP PRN (10:12)
[2019-02-03] MEDS ORDERED: hydrALAZINE 20 MG/ML VIAL SLOW IVP PRN (10:12)
[2019-02-03] MEDS ORDERED: Promethazine HCl 12.5 MG in Sodium Chloride 0.9% 50 ML IVPB PRN (10:12)
[2019-02-03] MEDS ORDERED: Bisacodyl 10 MG SUPP PR SCH (10:15)
--- NOTE | 2019-02-03 10:26 | PDOC.HOSPP ---
- Subjective Encounter Date: 02/03/19 Encounter Time: 10:24 Subjective: CC: back pain Subjective: Nursing reported new leg weakness this hour, went straight to bedside and both legs unable to pres against resistance, patient complains of back pain worse than yesterday and is confused, also reports no bowel movement in a long time but cannot specify how long. - Objective Vital Signs & Weight: Vital Signs (12 hours) Temp Pulse Resp BP BP Pulse Ox 02/03/19 08:04 99 02/03/19 07:07 97.8 F 100 18 155/83 H 99 02/03/19 06:47 86 16 93 L 02/03/19 04:00 97.4 F L 91 16 130/72 92 L 02/03/19 02:03 16 Weight Admit Weight 150 lb Weight 144 lb I&O: 02/02/19 02/03/19 02/04/19 06:59 06:59 06:59 Intake Total 720 960 Output Total 1850 1625 Balance -6484 -734 Result Diagrams: 02/03/19 04:33 02/03/19 04:33 Hospitalist ROS - Medication Medications: Active Medications Generic Name Dose Route Start Last Admin Trade Name Freq PRN Reason Stop Dose Admin Acetaminophen 650 mg 01/30/19 13:09 02/03/19 08:02 Tylenol PO 650 mg Q4H PRN Administration Headache/Fever/Mild Pain (1-3) Albuterol/Ipratropium 3 ml 01/30/19 14:30 02/03/19 06:47 Duoneb NEB 3 ml [id number] ARTHUR Administration Bicalutamide 50 mg 02/02/19 09:00 02/03/19 08:01 Casodex PO 50 mg DAILY ARTHUR Administration Dutasteride 0.5 mg 02/02/19 09:00 02/03/19 08:01 Avodart PO 0.5 mg DAILY ARTHUR Administration Enoxaparin Sodium 40 mg 02/03/19 09:00 02/03/19 08:02 Lovenox SC 40 mg 0900 ARTHUR Administration Furosemide 40 mg 02/02/19 07:30 02/03/19 08:01 Lasix PO 40 mg DAILY-AC ARTHUR Administration Pantoprazole Sodium 40 mg 02/03/19 09:00 02/03/19 08:02 Protonix PO 40 mg DAILY ARTHUR Administration Senna/Docusate Sodium 1 tab 02/02/19 21:00 02/03/19 08:01 Senokot S PO 1 tab BID ARTHUR Administration Tamsulosin HCl 0.4 mg 02/01/19 21:00 02/03/19 08:02 Flomax PO 0.4 mg BID ARTHUR Administration Hosp A/P - Plan Patient is an 88 year old male being treated for: # acute and chronic diastolic heart failure - continue diuresis, echo 2015 with normal EF, will order repeat today, per chart review appears improved since admission # metastatic prostate cancer - patient informed of diagnosis today - PT/OT/case management consults placed, predict patient would benefit from halfway facility placement - palliative care consulted as well - CT A/P revealed large prostate mass, extensive adenopathy concerning for lymphangitis spread, evidence of bony metastases in spine and pelvis - nuclear medicine bone scan with diffuse areas concerning for metastatic disease in ribs, pelvis, femur, spine # bilateral renal cysts - noted on CT, monitor, renal US without hydronephrosis # acute urinary retention - chua in place, urology consulted, on BID flomax and avodart, wean chua per urology recommendations # L inguinal hernia - noted on CT, no obstructions, symptoms more consistent with other diagnoses above than hernia issues # s/p fall w/ R shoulder pain - rehab evaluation, PRN pain medicaiton # history of atrial fibrillation - not on anticoagulation long-term, should see offal roller as outpatient, DVT ppx dose anticoagulation while here - recent fall with shoulder trauma, # history of intracranial aneurysm w/ surgery in past - noted # DVT/GI ppx Code status: currently full Disposition - therapy and case management consults for rehab evaluation -> suspect SNF will be best placement option - patient has been told about diagnosis, wants to tell family himself, offered assistance if patient should change his mind and want us to inform family or come to family discussion, please page sound physicians if patient makes such a request - palliative care and medical oncology consults - continue pain management, follow echo, bowel regimen, chua catheter may be needed residential - Manju daughter [phone] discussed case with my partner on 02/01/19 per chart review 50 minutes care time over half of which counselling and coordination of care
--- NOTE | 2019-02-03 10:30 | PDOC.HOSPP ---
- Subjective Encounter Date: 02/03/19 Encounter Time: 11:00 Subjective: Chief complaint: back pain Subjective: patient complains of new onset this AM weakness in both legs. Complains of constipation, does not remember last bowel movement date. Complains of back pain more severe than yesterday. - Objective Vital Signs & Weight: Vital Signs (12 hours) Temp Pulse Resp BP BP Pulse Ox 02/03/19 08:04 99 02/03/19 07:07 97.8 F 100 18 155/83 H 99 02/03/19 06:47 86 16 93 L 02/03/19 04:00 97.4 F L 91 16 130/72 92 L 02/03/19 02:03 16 Weight Admit Weight 150 lb Weight 144 lb I&O: 02/02/19 02/03/19 02/04/19 06:59 06:59 06:59 Intake Total 720 960 Output Total 1850 1625 Balance -1130 -045 Result Diagrams: 02/03/19 04:33 02/03/19 04:33 Hospitalist ROS - Medication Medications: Active Medications Generic Name Dose Route Start Last Admin Trade Name Freq PRN Reason Stop Dose Admin Acetaminophen 650 mg 01/30/19 13:09 02/03/19 08:02 Tylenol PO 650 mg Q4H PRN Administration Headache/Fever/Mild Pain (1-3) Albuterol/Ipratropium 3 ml 01/30/19 14:30 02/03/19 06:47 Duoneb NEB 3 ml [id number] ARTHUR Administration Bicalutamide 50 mg 02/02/19 09:00 02/03/19 08:01 Casodex PO 50 mg DAILY ARTHUR Administration Dutasteride 0.5 mg 02/02/19 09:00 02/03/19 08:01 Avodart PO 0.5 mg DAILY ARTHUR Administration Enoxaparin Sodium 40 mg 02/03/19 09:00 02/03/19 08:02 Lovenox SC 40 mg 0900 ARTHUR Administration Furosemide 40 mg 02/02/19 07:30 02/03/19 08:01 Lasix PO 40 mg DAILY-AC ARTHUR Administration Pantoprazole Sodium 40 mg 02/03/19 09:00 02/03/19 08:02 Protonix PO 40 mg DAILY ARTHUR Administration Senna/Docusate Sodium 1 tab 02/02/19 21:00 02/03/19 08:01 Senokot S PO 1 tab BID ARTHUR Administration Tamsulosin HCl 0.4 mg 02/01/19 21:00 02/03/19 08:02 Flomax PO 0.4 mg BID ARTHUR Administration - Exam General Appearance: awake alert (back pain, mild distress) Eye: PERRL, anicteric sclera ENT: normocephalic atraumatic, moist mucosa Neck: supple, symmetric, no JVD Heart: RRR, no murmur, no gallops, no rubs Respiratory: CTAB, no wheezes, no rales, no ronchi Gastrointestinal: soft, non-tender, non-distended, normal bowel sounds Extremities: no cyanosis, no clubbing, no edema Skin: no lesions, no rashes Neurological - other findings: motor strength 2-3/5 in bilateral lower extremities Musculoskeletal: normal tone, normal strength Psychiatric: normal affect Psychiatric - other findings: confused, aox1-2 Hosp A/P - Plan Patient is an 88 year old male being treated for: # acute and chronic diastolic heart failure - continue diuresis, echo 2015 w/ preserved EF, follow repeat # metastatic prostate cancer - CT A/P w/ large prostate mass, adenopathy, suggestion of bony metastases, bone scan also with suggestion of bone mets in ribs, vertebrae, femur, pelvis - PT/OT/case management consult for SNF placement - palliative care and oncology consulted, appreciate evaluations, oncology started casodex and plans for eventual transition to leuprolide # new lower extremity weakness - in setting of metastatic prostate cancer is concerning for spinal involvement - MRI of entire spine ordered with and without contrast - increase steroids to high dose dexamethasone - discussed with neurosurgery, they request call back with MRI results # bilateral renal cysts - noted, chua in place # urinary retention - appreciate urology evaluation, chua in place, on avodart and flomax BID # L inguinal hernia - noted on CT, pain not in region of concern for incarceration etc # back pain - likely due to cancer, altered mental status already so not sure high dose pain meds the best choice currently, will schedule tylenol with a PRN oxycontin for severe pain # history of atrial fibrillation - not on anticoagulation ferry terminal agent, dvt dose ppx while here ordered, should see cardiology as outpatient, recent fall w/ shoulder trauma # history of IC aneurysm w/ surgery in the past - noted # DVT/GI ppx # code status - DNR/DNI after palliative visit and explanation of options, see their notes for details Disposition - likely SNF, though workup still in progress and new complaints today troubling. appreciate all consultants
--- NOTE | 2019-02-03 10:39 | RAD ---
KUB INDICATION: Abdominal pain COMPARISON: CT the abdomen and pelvis without contrast dated February 01, 2019. FINDINGS: Bowel gas: There is new gaseous distention of portions of the stomach and proximal small bowel. Lung bases: Not visualized Additional findings: There is a temperature probe seen within the region of the bladder. There are sc attered vascular calcifications. Osseous structures: No acute osseous abnormality is demonstrated. IMPRESSION: Interval development of nonspecific gaseous distention of the stomach and proximal small bowel. Acute abdominal series may be helpful for further characterization. Mild ileus or early obstruction is not excluded.
[2019-02-03] MEDS: Acetaminophen 325 MG TAB PO SCH ×2 (11:45→17:15)
[2019-02-03] MEDS: Dexamethasone 4 mg/ml Vial SLOW IVP SCH ×2 (11:46→17:16)
[2019-02-03] MEDS ORDERED: Scopolamine 1.5 mg/72 hour Patch TD SCH (14:00)
--- NOTE | 2019-02-03 14:09 | PDOC.PALCO ---
Palliative Care Consult - Consult Details Requesting Physician: Dr Armstrong Reason for Consult: goals of care, advance directives assistance, family support Family Members Present: None - Pertinent HPI 88 year old male who lived independently and had a fall at home, noted prior to fall to be short of breath with chronic cough. He was brought to the emergency room by his daughter for evaluation, he was admitted telemetry for s/p fall, COPD exacerbation. - Pertinent PMH Intracranial aneurysm, congestive heart failure, Atrial fib/chronic, COPD - Social History Smoking Status: Former smoker Smoking: cigarettes Alcohol Use: none Drug Use History: none Living Situation: independent - Medications MAR Reviewed: Yes - Allergies Allergies/Adverse Reactions: Allergies Allergy/AdvReac Type Severity Reaction Status Date / Time No Known Allergies Allergy Unverified 04/16/14 09:17 - Subjective Short of breath with non productive wet cough. Pain "all over" more pronounced to back and weakness to lower extremities. - ROS Constitutional: loss appetite, weakness Eyes: other (pain, drainage) ENT: alteration in dentition Respiratory: shortness of breath, shortness of breath with extertion Cardiology: other (negative for chest pain, palpitations) Gastrointestinal: constipation Musculoskeletal: back pain, limited mobility Neurological: confusion - Objective Vital Signs: Vital Signs - Most Recent Temp Pulse Resp BP Pulse Ox 97.9 F 89 22 H 162/78 H 98 02/03/19 11:57 02/03/19 11:57 02/03/19 11:57 02/03/19 11:57 02/03/19 11:57 Palliative Performance Scale: 30 - Physical Exam Constitutional: cachectic, confusion, ill appearing HEENT: moist MMs, poor dentition Respiratory: accessory muscle use, labored respirations, wheezing present Cardiovascular: irregular Gastrointestinal: non-tender, positive bowel sounds Genitourinary: continent Musculoskeletal: muscle wasting Neurology: moves all 4 limbs, speech deficit Skin: cap refill <2 seconds Deviation from normal: Confused, mildly lethargic - Problem List (1) Palliative care encounter Code(s): Z51.5 - ENCOUNTER FOR PALLIATIVE CARE Current Visit: Yes Status: Acute (2) Bony metastasis Code(s): C79.51 - SECONDARY MALIGNANT NEOPLASM OF BONE Current Visit: Yes Status: Acute (3) Pain Code(s): R52 - PAIN, UNSPECIFIED Current Visit: No Status: Acute - Plan/Recommendations Plan: Patient evaluated, will coordinate family meeting with Patient daughter to discuss goals of care. Scopolamine patch ordered to mitigate secretions. [45] minutes spent on this encounter with >50% of the time in counseling and coordination of care. Thank you for this very appropriate consult.
--- NOTE | 2019-02-03 16:21 | MRI ---
MRI thoracic spine noncontrast: DATE: 02/03/2019 HISTORY: 88-year-old male with metastatic prostate cancer presents with bilateral lower extremity weakness. Ru le out cord compression. Telephone discussion at 4:05 PM 02/03/[address] Contreras and Dr. Lucia regarding all the findings mentioned in impression: . FINDINGS: Therapy Site Coordinator sagittal T1-weighted sequence demonstrates a displaced fracture of the odontoid process, type I I. Osseous metastatic lesions involving multiple vertebral bodies in the thoracic spine, including T3, T 4, T5, T6, T8, and T9 vertebral bodies. Except for the T8 lesion, the metastatic lesions involve the majority of the volumes of there respective vertebral bodies. There is extension of tumor involve ment involving right pedicles and right facet complex is of T4, T5, T6, and T9, and left pedicles and facet complex is of T5 and T6. Pathologic fracture of T5 with bony retropulsion and approximately 75 % maximum anterior loss of heig ht. Severe cord compression by a combination the bony retropulsion and tumor mass anterior, right, and po sterior to the spinal cord from T4-5 through T5-6, causing significant cord edema that extends superiorly to the upper T4 level and inferiorly to the mid T6 level. No syringohydromyelia. There is anterior epidural tumor material centrally and bilaterally. Centrally at T9, mildly abutting the spinal cord without les compression there, and causing moderate thecal sac stenosis. Postcontrast images were not obtained because of the long time that would required. Also, although [facility] MRI was ordered, it was not performed also because a long time that would be required. These noncontrast MR images provide adequate information. Furthermore, review of the CT of abdomen an d pelvis of 02/01/2019, including sagittal reconstructions of lumbar spine, demonstrate no obvious large destructive osseous mass involving the lumbar spine, although there is central spinal canal nery nosis at L3-4 of high-grade degree. IMPRESSION: 1. Severe cord compression in mid thoracic spine due to metastatic spinal disease. 2. Pathologic fracture of T5. 3. Displaced type II odontoid fracture. 4. Aneurysm clip. No further MRIs should be performed on this patient until documents of that particu lar clip become available (the fact that the patient has undergone an MRI examination without incident does not necessarily guarantee that untoward event will not happen in future MRIs scan).
--- NOTE | 2019-02-03 16:27 | MRI ---
MRI cervical spine noncontrast: DATE: 02/03/2019 HISTORY: 88-year-old male with metastatic prostate cancer presents with bilateral lower extremity weakness. FINDINGS: There is a fracture of the odontoid process, with mild posterior displacement and posterior angulatio n of the superior fragment. There is abuts the ventral surface of the cervical medullary junction, but does not cause les cord compression here. There is bone marrow edema at this fracture. Cervical vertebral body heights are maintained. Metastatic osseous lesions involving portions of vertebral bodies at C6 and C7. Large metastatic tumor components involving the majority of the volumes of the T3, T4, T5, and T6 rossy tebral bodies. Pathologic burst fracture of T5 with bony retropulsion. Severe cord compression and cord edema at those levels. See separate report of thoracic spine MRI. Multilevel degenerative disc disease with moderate disc space narrowing at all levels from C3-4 throu gh C6-C7, with broad-based disc-osteophytic bar complex is protruding into the anterior aspect of the spinal canal, and ligamentum flavum thickening abutting the dorsal surface of the spinal cord at those same levels, resulting in severe central spinal canal stenoses throughout those same levels. Also, severe bilateral neural foraminal stenosis at those levels. Axial images are severely degraded by patient motion. IMPRESSION: 1. Displaced type II odontoid fracture. 2. Cervical spondylosis causing chronic severe central spinal canal stenosis and severe bilateral richar ral foraminal stenosis at C3-4, C4-5, C5-C6, and C6-7. 3. Severe spinal osseous metastatic tumor involvement at several levels in the upper and mid thoracic spine causing severe cord compression. See separate report of T-spine MRI.
[2019-02-03] MEDS: AcetaZOLAMIDE 250 MG TAB PO SCH (20:00)
[2019-02-04] MEDS: Dexamethasone 4 mg/ml Vial SLOW IVP SCH ×5 (00:09→23:25)
[2019-02-04] MEDS: Acetaminophen 325 MG TAB PO SCH ×3 (03:39→18:15)
[2019-02-04 04:58] LABS: #Basophils 0.2 thou/uL (0.0-0.2); #Lymphocytes 0.3 thou/uL (1.20-3.40); #Monocytes 0.4 thou/uL (0.11-0.59); #Neutrophils 8.4 thou/uL (1.40-6.50); %Basophils 1.7 % (0.0-1.0); %Eosinophils 0.4 % (0.0-10.0); %Lymphocytes 2.9 % (21.0-51.0); %Monocytes 4.5 % (0.0-10.0); %Neutrophils 90.5 % (42.0-75.0); Hemoglobin 12.5 g/dL (14.0-18.0); Mean Corpuscular HGB CONC 31.8 g/dL (32.0-36.0); Mean Corpuscular Hemoglobin 26.2 pg (27.0-31.0); Mean Corpuscular Volume 82.5 fL (78.0-98.0); Mean Platelet Volume 8.7 fL (7.4-10.4); Platelet Count 161 thou/uL (130-400); RBC Distribution Width 13.4 % (11.5-14.5); Red Blood Cell (RBC) Count 4.78 mill/uL (4.70-6.10); White Blood Cell (WBC) Count 9.2 thou/uL (4.8-10.8)
[2019-02-04 05:10] LABS: Anion Gap 12 mmol/L (10-20); BUN (Urea Nitrogen) 28 mg/dL (8.4-25.7); Calc. Creatinine Clearance 56 mL/min (70-130); Calcium 8.2 mg/dL (7.8-10.44); Carbon Dioxide 34 mmol/L (23-31); Chloride 92 mmol/L (98-107); Estimated GFR-MDRD 87; Glucose 125 mg/dL (83-110); Potassium 3.5 mmol/L (3.5-5.1); Sodium 134 mmol/L (136-145)
--- NOTE | 2019-02-04 05:40 | CON ---
DATE OF CONSULTATION: HISTORY OF PRESENT ILLNESS: Mr. Watson is an 88-year-old male who reported to the emergency room department on January 30 via EMS due to weakness, a fall the day before on the from standing. Denies hitting his head. The patient did report shortness of breath, some swelling in his legs, and productive cough. The patient was admitted on the for COPD exacerbation along with CHF. The patient has progressed showing some prostate cancer with brain metastasis. He is now complaining of back pain, and today stated that he does not have the feeling in his legs and has decreased mobility. Prior to this weekend, he was walking and living on his own. He has been moving all extremities until sometime today. Neurosurgery was consulted following MRI cervical and thoracic spine. Incomplete workup due to a coil or a clip from an aneurysm many years ago and radiologist chose to stop exam. There is significant spinal stenosis in many areas as well as multiple areas of metastatic disease, pathologic fracture including a significant T5 burst fracture with retropulsion causing spinal cord compression. When I see the patient, he is resting comfortably. He is currently getting nebulizing treatment. Once he finished, we started discussing his back pain and his legs. He states that his back does hurt and it has hurt for some time, but it has progressively gotten worse. He had some generalized weakness over the weekend and earlier, but now he feels like he cannot move his legs. He does have some spontaneous movement on the left and a little bit of toe wiggle and ankle motion. I did not get any significant movement from his right leg. He states that he cannot feel me touch his legs, but then denies any numbness or tingling. His exam is poor due to his memory and confusion. He is moving his upper extremities well. Denies change in sensation. He does have significant thickening and hyperpigmentation in the lower extremities. There is edema. REVIEW OF SYSTEMS: A 10-point review of systems is completed and is negative other than stated in the above HPI. PAST MEDICAL HISTORY: Includes aneurysm, CHF, COPD, hernia, neurologic disease. SURGICAL HISTORY: Hernia, brain aneurysm. SOCIAL HISTORY: The patient denies smoking or alcohol use. Denies illicit drug use. ALLERGIES: NO KNOWN DRUG ALLERGIES. CURRENT MEDICATIONS: 1. Furosemide. 2. Symbicort. 3. Aspirin. 4. Lisinopril. PHYSICAL EXAMINATION: VITAL SIGNS: Temperature 97.4, respirations 19, heart rate 86, O2 sats 94% on room air, blood pressure 108/60. CONSTITUTIONAL: The patient is awake, alert. He is oriented to person. He appears nontoxic, but painful. HEENT. Head is normocephalic and atraumatic. Pupils are equal, round, and reactive to light. Extraocular movements are intact. Hearing is intact. Moist mucous membranes. RESPIRATIONS: Symmetric chest rise. EXTREMITIES: The patient moves upper extremities well. He has 5/5 bilateral strength in deltoids, biceps, triceps, sales representative aircraft strength, finger intrinsics. He has very little motion in the lower extremities, left leg toe wiggle and ankle dorsiflexion. Right leg, no movement. NEUROLOGIC: The patient is awake, alert, oriented to person. His speech is spontaneous and is fluent. He has some confusion about how he is feeling along with his events. He is uncertain of the day and has given inconsistencies in his exam. He states he has sensory changes and he cannot feel me touch his lower extremities; however, he denies numbness or tingling. IMAGING: MRI cervical spine, noncontrast, displaced odontoid type 2 fractures; cervical spondylosis causing chronic stenosis of the spinal canal; severe bilateral neural foraminal stenosis, C3-4, C4-5, C5-6, C6-7; severe spinal osseous metastasis, tumor involvement in several levels of upper and mid thoracic spine causing severe cord compression. Thoracic spine MRI, there are osseous metastatic lesions involving multiple vertebral bodies of the thoracic spine including T3-T4, T5-T6, T8-T9. There is extension of tumor involving the right pedicles and right facet complex of T4, T5, T6, and T9 and left pedicles and facet complex at T5 and T6. There is pathologic fracture at T5 with bony retropulsion, approximately 75% anterior height loss, severe cord compression by combination of bony retropulsion, tumor mass, anterior right and posterior to the spinal column and T4-5 through T5-6 causing significant cord edema extending superiorly into the upper T4 level, inferiorly into the mid T7. No syringohydromyelia. Impression, severe cord compression thoracic spine due to metastatic spinal disease, pathologic fracture, T5, displaced type 2 odontoid fracture, aneurysm clip. No further MRI should be performed on this patient until documents of the particular clip become available. ASSESSMENT AND PLAN: Mr. Watson is an 88-year-old male with metastatic prostate cancer, bone metastasis, severe fracture causing retropulsion and spinal cord compression at T5. The patient has slow onset over the last few days of weakening of his lower extremities. Today, he has very little motion in his lower body. He states that he has significant back pain with good reason. The patient has been on DNR. I believe the family wishes to discharge the patient on hospice to SNF. However, if family would like most aggressive treatments, surgery would be very risky. At this point, we are recommending a clamshell brace cervical extension for odontoid fracture pain control. Steroids can be started for cord compression. If there are changes and the patient's family wishes, please contact Neurosurgery. Job ID: [id number]
--- NOTE | 2019-02-04 07:25 | PRG ---
DATE OF SERVICE: 02/04/2019 This is a neurosurgery progress note. I personally interviewed the patient, reviewed records and imaging and I agreed with the documentation of Gianna Corral PA-C dated 02/04/2019. In the early hours of this morning, a consult was completed. Briefly, Castro Watson is an 88-year-old gentleman with metastatic prostate cancer. There is metastasis in the bone. This was known prior to his admission, but this admission happened on 01/30. His first hospital day was , his fifth hospital day was the , and this is his 6th hospital day. He has noticed some leg weakness and pain between his shoulder blades. The weakness progressed to falls and eventually sought medical attention for this. In the hospital, he has been unable to use his legs to hold his weight. A scan was done and a Neurosurgery consult placed yesterday. The scan suggested bony metastasis to multiple vertebral bodies and thoracic spine and some exophytic growth of the metastasis at T5 into the canal from the vertebral body from the pedicle and from the lamina. The result of this exophytic mass is cord compression with T2 signal change in the cord and severe myelopathy. Examination confirms the myelopathy. Our plan is to talk to Mr. Watson's family later today. The laminectomy alone would result in some increase in instability, but could decompress his cord. A laminectomy with fusion would provide some stability, but would need to be extended into quality bone and that would make for much longer operation. Radiation therapy could shrink the tumor slowly and provide more room for his cord. Palliative Care could treat his pain. Unfortunately, given the duration of the symptoms and the amount of pressure on the spinal cord and his age, I am not optimistic and return of functional use of the legs. The increase in sensation from a cord to decompression could help prevent bedsores and increase sensation. The appreciation of painful sensations from the chest down, which would make care easier and prevent other complications. This is a small improvement and the risks we take with surgery may be justified for that small amount of improvement depending on the family wishes. If, however, they do want any invasive intervention, bracing and radiation therapy should be use. Again, I do not think any course of action is going to return him to ambulatory status. Addendum: Just spoke to his daughter. She and Mark, his son, think that we should NOT do any surgery given his age, frailty, and with it being unlikely to give him ambulation again. Please call us with questions. Job ID: [id number] KRISTI
--- NOTE | 2019-02-04 07:51 | PRG ---
DATE OF SERVICE: 02/04/2019 SUBJECTIVE: The patient arousable, no family at bedside this morning. OBJECTIVE: VITAL SIGNS: Stable. His urine output is 2800. ABDOMEN: Soft. No rigidity. No rebound. Catheter draining yellow urine. LABORATORY DATA: White count 9, hemoglobin 12, platelets 161. Creatinine 0.8. IMAGING STUDIES: MRI of the thoracic cervical spine reviewed, demonstrating multiple cervical stenosis, T5 cord compression with diffuse metastasis. IMPRESSION AND PLAN: Mr. Watson is an 88-year-old male with diffusely metastatic prostate cancer, PSA over 1000. Urinary retention of 600 mL PVR and currently tolerating urethral Naidu. Recommend continuing Casodex, BPH medications. Long discussion with daughter yesterday, Palliative Care consult appreciated and in progress with coordination with family. Neurosurgical consultation is pending. Disposition is pending regarding palliative care pending discussion with family. Prognosis is poor. If he is discharged to inpatient hospice, can discharge with indwelling Naidu catheter. [facility] covering me this weekend for p.r.n. issues. Job ID: [id number] MTDD
--- NOTE | 2019-02-04 08:46 | PQF ---
IGNACIO MOJICA MICHAEL, MD [id number] [id number] [id number] CLINICAL DOCUMENTATION IMPROVEMENT CLARIFICATION FORM: ICD-10 Updated PLEASE DO AN ADDENDUM TO THE PROGRESS NOTE WITH ANY DOCUMENTATION UPDATES OR ADDITIONS AND CARRY THROUGH TO DC SUMMARY. THANK YOU. DATE: 02/04/19 ATTN: Dr. Armstrong Please exercise your independent, professional judgment in responding to the clarification form. 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 Thank You. CLINICAL INDICATORS - SIGNS / SYMPTOMS / LABS / RESULTS AND LOCATION IN EMR 02/04 NS(Felix): "the scan suggested bony metastasis to multiple vertebral bodies and thoracic spine and some exophytic growth of the metastasis at T5 in to the canal from the vertebral body form the pedicle and from the lamina. The result of this exphytic mass is cord compression with T2 signal change in the cord and severe myelopathy." "in the hospital, he has been unable to use his legs to hold his weight." 02/03 Aterno: "new onset this AM weakness both leg RISK FACTORS / RESULTS AND LOCATION IN EMR 02/04 [facility]: " MET PROSTATE CANCER" TREATMENTS / RESULTS AND LOCATION IN EMR Neurosurgeon consult 02/03 orders IV steroids--> Dexamethasome 4mg IV Q6H 02/03 to date per orders (This form is maintained as a part of the permanent medical record) 2014 [email or web address], [facility]. All Rights Reserved Megan Parikh RN, BSN, CCDS [email or web address]
[2019-02-04] MEDS: Dutasteride 0.5 MG CAP PO SCH (09:16)
[2019-02-04] MEDS: Senokot S 8.6-50 MG TAB PO SCH ×2 (09:17→20:16)
[2019-02-04] MEDS: Tamsulosin HCl 0.4 MG CAP PO SCH ×2 (09:17→20:16)
[2019-02-04] MEDS: AcetaZOLAMIDE 250 MG TAB PO SCH ×2 (09:17→20:17)
[2019-02-04] MEDS: Bicalutamide 50 MG TAB PO SCH (09:17)
[2019-02-04] MEDS: Enoxaparin Sodium 40 MG/0.4 ML SYRINGE SC SCH (09:17)
--- NOTE | 2019-02-04 10:26 | PDOC.HOSPP ---
- Subjective Encounter Date: 02/04/19 Encounter Time: 10:24 Subjective: Patient in bed, cannot voluntarily move legs any more, no chest pain or shortness of breath, back pain is controlled and patient not in distress. Discussed with palliative care SOCIAL WORK JOB TITLES Pilar, plan for family meeting likely near future. Patient had BM. - Objective Vital Signs & Weight: Vital Signs (12 hours) Temp Pulse Resp BP Pulse Ox 02/04/19 07:50 97.6 F 105 H 18 92/51 L 95 02/04/19 06:53 88 14 95 02/04/19 03:39 108/56 L 02/04/19 03:38 92 L 02/04/19 03:12 97 F L 78 20 99/54 L 92 L 02/03/19 23:25 92 L Weight Admit Weight 150 lb Weight 115 lb I&O: 02/03/19 02/04/19 02/05/19 06:59 06:59 06:59 Intake Total 960 352 Output Total 9761 7490 Balance -226 -5914 Result Diagrams: 02/04/19 04:34 02/04/19 04:34 Hospitalist ROS - Medication Medications: Active Medications Generic Name Dose Route Start Last Admin Trade Name Freq PRN Reason Stop Dose Admin Acetaminophen 650 mg 02/03/19 10:15 02/04/19 09:16 Tylenol PO 650 mg Q8H ARTHUR Administration Acetazolamide 250 mg 02/03/19 21:00 02/04/19 09:17 Diamox PO 02/05/19 09:01 250 mg BID ARTHUR Administration Albuterol/Ipratropium 3 ml 01/30/19 14:30 02/04/19 06:53 Duoneb NEB 3 ml [id number] ARTHUR Administration Bicalutamide 50 mg 02/02/19 09:00 02/04/19 09:17 Casodex PO 50 mg DAILY ARTHUR Administration Dexamethasone 4 mg 02/03/19 12:00 02/04/19 05:21 Decadron SLOW IVP 4 mg Q6HR ARTHUR Administration Dutasteride 0.5 mg 02/02/19 09:00 02/04/19 09:16 Avodart PO 0.5 mg DAILY ARTHUR Administration Enoxaparin Sodium 40 mg 02/03/19 09:00 02/04/19 09:17 Lovenox SC 40 mg 0900 ARTHUR Administration Furosemide 40 mg 02/02/19 07:30 02/03/19 08:01 Lasix PO 40 mg DAILY-AC ARTHUR Administration Pantoprazole Sodium 40 mg 02/04/19 09:00 02/04/19 09:17 Protonix PO 40 mg DAILY ARTHUR Administration Scopolamine 1.5 mg 02/03/19 14:00 02/03/19 16:14 Transderm Scop TD Not Given Q3D ARTHUR Senna/Docusate Sodium 1 tab 02/02/19 21:00 02/04/19 09:17 Senokot S PO 1 tab BID ARTHUR Administration Sodium Chloride 10 ml 02/01/19 17:27 02/04/19 09:18 Flush - Normal Saline IVF 10 ml PRN PRN Administration Saline Flush Tamsulosin HCl 0.4 mg 02/01/19 21:00 02/04/19 09:17 Flomax PO 0.4 mg BID ARTHUR Administration - Exam General Appearance: NAD, awake alert Eye: PERRL, anicteric sclera ENT: normocephalic atraumatic, moist mucosa Neck: supple, symmetric, no JVD Heart: RRR, no murmur, no gallops, no rubs Respiratory: CTAB, no wheezes, no rales, no ronchi Gastrointestinal: soft, non-tender, non-distended, normal bowel sounds Extremities: no cyanosis, no clubbing, no edema Skin: normal turgor, no lesions Neurological - other findings: continued paralysis lower extremities Musculoskeletal: normal tone Musculoskeletal - other findings: bilateral lower extremity paralysis Psychiatric: normal affect, normal behavior, A&O x 3 Hosp A/P - Plan Patient is an 88 year old male being treated for: # metastatic prostate cancer - CT A/P w/ large prostate mass, adenopathy, suggestion of bony metastases, bone scan also with suggestion of bone mets in ribs, vertebrae, femur, pelvis - PT/OT/case management consult for SNF placement - palliative care and oncology consulted, appreciate evaluations, oncology started casodex and plans for eventual transition to leuprolide # new compression myelopathy and lower extremity paralysis with bowel and bladder incontinence - MRI spine confirmed cord compression at several levels and also vertebral fractures - continue IV dexamethasone - appreciate neurosurgical evaluation, no current plan for surgery at this time # acute and chronic diastolic heart failure - continue diuresis, echo 2015 w/ preserved EF, diamox today and back to lasix tomorrow for contraction alkalosis - echo with preserved EF, atrial fibrillation, moderate MR, other findings per report which was reviewed, defer cardiology consult at this time as patient improving on current measures # bilateral renal cysts - noted, chua in place # urinary retention - appreciate urology evaluation, chua in place, on avodart and flomax BID # L inguinal hernia - noted on CT, not clinically incarcerated # back pain - in the setting of prostate cancer, continue bowel regimen, continue scheduled tylenol with PRN oxycontin # history of atrial fibrillation - not on anticoagulation brass buffer, dvt dose ppx while here ordered, should see cardiology as outpatient, recent fall w/ shoulder trauma # 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
[2019-02-05] MEDS: Acetaminophen 325 MG TAB PO SCH ×3 (02:09→18:13)
[2019-02-05 04:51] LABS: #Lymphocytes 0.3 thou/uL (1.20-3.40); #Monocytes 0.8 thou/uL (0.11-0.59); #Neutrophils 10.6 thou/uL (1.40-6.50); %Eosinophils 0.2 % (0.0-10.0); %Lymphocytes 2.4 % (21.0-51.0); %Monocytes 7.1 % (0.0-10.0); %Neutrophils 90.2 % (42.0-75.0); Hemoglobin 13.1 g/dL (14.0-18.0); Mean Corpuscular HGB CONC 31.3 g/dL (32.0-36.0); Mean Corpuscular Hemoglobin 25.8 pg (27.0-31.0); Mean Corpuscular Volume 82.4 fL (78.0-98.0); Platelet Count 172 thou/uL (130-400); RBC Distribution Width 13.5 % (11.5-14.5); White Blood Cell (WBC) Count 11.7 thou/uL (4.8-10.8)
[2019-02-05 04:59] LABS: Anion Gap 15 mmol/L (10-20); BUN (Urea Nitrogen) 40 mg/dL (8.4-25.7); Calc. Creatinine Clearance 46 mL/min (70-130); Calcium 8.7 mg/dL (7.8-10.44); Carbon Dioxide 32 mmol/L (23-31); Chloride 90 mmol/L (98-107); Estimated GFR-MDRD 68; Glucose 99 mg/dL (83-110); Potassium 3.4 mmol/L (3.5-5.1); Sodium 134 mmol/L (136-145)
[2019-02-05] MEDS: Dexamethasone 4 mg/ml Vial SLOW IVP SCH ×4 (05:00→17:08)
[2019-02-05] MEDS: Enoxaparin Sodium 40 MG/0.4 ML SYRINGE SC SCH (09:31)
[2019-02-05] MEDS: Dutasteride 0.5 MG CAP PO SCH (09:31)
[2019-02-05] MEDS: AcetaZOLAMIDE 250 MG TAB PO SCH (09:31)
[2019-02-05] MEDS: Bicalutamide 50 MG TAB PO SCH (09:31)
[2019-02-05] MEDS: Tamsulosin HCl 0.4 MG CAP PO SCH ×2 (09:31→21:54)
[2019-02-05] MEDS: Senokot S 8.6-50 MG TAB PO SCH ×2 (09:31→21:53)
[2019-02-05] MEDS: Morphine 2 MG/ML SYRINGE SLOW IVP PRN (17:08)
--- NOTE | 2019-02-05 20:00 | PDOC.HOSPP ---
- Subjective Encounter Date: 02/05/19 Encounter Time: 19:59 Subjective: CC: back pain Subjective: patinet visibly altered, eyes not regarding speaker, darting around room, mumbling. Denies back pain. somehow still oriented x 2-3. legs remain paralyzed. updated daughter - Objective Vital Signs & Weight: Vital Signs (12 hours) Temp Pulse Resp BP Pulse Ox 02/05/19 18:46 94 L 02/05/19 18:42 94 25 H 94 L 02/05/19 15:35 98.1 F 92 18 102/54 L 94 L 02/05/19 15:11 98 15 94 L 02/05/19 11:29 97.5 F L 98 16 100/53 L 93 L 02/05/19 10:34 97 14 95 Weight Admit Weight 150 lb Weight 146 lb 6 oz I&O: 02/04/19 02/05/19 02/06/19 06:59 06:59 06:59 Intake Total 352 320 240 Output Total 2800 1050 250 Balance 2448 -730 -10 Result Diagrams: 02/05/19 04:03 02/05/19 04:03 Hospitalist ROS - Medication Medications: Active Medications Generic Name Dose Route Start Last Admin Trade Name Freq PRN Reason Stop Dose Admin Acetaminophen 650 mg 02/03/19 10:15 02/05/19 18:13 Tylenol PO Not Given Q8H ARTHUR Albuterol/Ipratropium 3 ml 01/30/19 14:30 02/05/19 18:42 Duoneb NEB 3 ml [id number] ARTHUR Administration Bicalutamide 50 mg 02/02/19 09:00 02/05/19 09:31 Casodex PO 50 mg DAILY ARTHUR Administration Dexamethasone 4 mg 02/03/19 12:00 02/05/19 17:08 Decadron SLOW IVP 4 mg Q6HR ARTHUR Administration Dutasteride 0.5 mg 02/02/19 09:00 02/05/19 09:31 Avodart PO 0.5 mg DAILY ARTHUR Administration Enoxaparin Sodium 40 mg 02/03/19 09:00 02/05/19 09:31 Lovenox SC 40 mg 0900 ARTHUR Administration Furosemide 40 mg 02/02/19 07:30 02/03/19 08:01 Lasix PO 40 mg DAILY-AC ARTUHR Administration Morphine Sulfate 2 mg 02/03/19 10:12 02/05/19 17:08 Morphine SLOW IVP 2 mg Q4H PRN Administration Breakthrough Pain Pantoprazole Sodium 40 mg 02/04/19 09:00 02/05/19 09:31 Protonix PO 40 mg DAILY ARTHUR Administration Senna/Docusate Sodium 1 tab 02/02/19 21:00 02/05/19 09:31 Senokot S PO 1 tab BID ARTHUR Administration Sodium Chloride 10 ml 02/01/19 17:27 02/05/19 09:32 Flush - Normal Saline IVF 10 ml PRN PRN Administration Saline Flush Tamsulosin HCl 0.4 mg 02/01/19 21:00 02/05/19 09:31 Flomax PO 0.4 mg BID ARTHUR Administration - Exam General - other findings: altered mental status, no distress Eye: PERRL, anicteric sclera ENT: normocephalic atraumatic, moist mucosa Neck: supple, no JVD Heart: RRR, no murmur, no gallops, no rubs Respiratory: CTAB, no wheezes, no rales, no ronchi Gastrointestinal: soft, non-tender, non-distended, normal bowel sounds Extremities: no cyanosis, no clubbing, no edema Skin: no lesions, no rashes Neurological - other findings: bilateral lower extremity paralysis, altered mental status, CN2-12 intact Musculoskeletal: generalized weakness Psychiatric: oriented to person, oriented to place Psychiatric - other findings: altered mental status Hosp A/P - Plan Consults: Palliative Care Patient is an 88 year old male being treated for: # metastatic prostate cancer - CT A/P w/ large prostate mass, adenopathy, suggestion of bony metastases, bone scan also with suggestion of bone mets in ribs, vertebrae, femur, pelvis - PT/OT/case management consult for SNF placement - palliative care and oncology consulted, appreciate evaluations, oncology started casodex and plans for eventual transition to leuprolide # 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 may also be a bit of decadron side effect or hospital delirium, patient in brace NSG prescribed which is large and unwieldy # acute and chronic diastolic heart failure - echo 2016 w/ preserved EF, diamox today and back to lasix tomorrow for contraction alkalosis - echo with preserved EF, atrial fibrillation, moderate MR, other findings per report which was reviewed, defer cardiology consult at this time as patient improving on current measures - lasix down to 40mg PO daily now, chua in place # bilateral renal cysts - noted, chua in place # urinary retention - appreciate urology evaluation, chua in place, on avodart and flomax BID # L inguinal hernia - noted on CT, not clinically incarcerated # back pain - in the setting of prostate cancer, continue bowel regimen, continue scheduled tylenol with PRN oxycontin # history of atrial fibrillation - not on anticoagulation rn long term care, dvt dose ppx while here ordered, should see cardiology as outpatient, recent fall w/ shoulder trauma # 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
--- NOTE | 2019-02-05 21:33 | RAD ---
XR Chest 1 View Portable History: Shortness of breath Comparison: Radiograph January 30, 2019 Findings: Mild pulmonary edema. Heart size is enlarged. Small effusions. No pneumothorax. Nodular density projects over the right lower lobe. Impression: 1. Mild volume overload and congestive heart failure. 2. Nodular density projecting over the right lower lobe for which a nonemergent follow-up chest CT re commended.
[2019-02-06] MEDS: Acetaminophen 325 MG TAB PO SCH ×3 (03:44→18:46)
[2019-02-06 05:16] LABS: #Lymphocytes 0.4 thou/uL (1.20-3.40); #Monocytes 0.7 thou/uL (0.11-0.59); #Neutrophils 9.9 thou/uL (1.40-6.50); %Basophils 0.1 % (0.0-1.0); %Eosinophils 0.1 % (0.0-10.0); %Lymphocytes 3.4 % (21.0-51.0); %Monocytes 6.4 % (0.0-10.0); %Neutrophils 90.1 % (42.0-75.0); Hemoglobin 12.3 g/dL (14.0-18.0); Mean Corpuscular HGB CONC 32.3 g/dL (32.0-36.0); Mean Corpuscular Hemoglobin 26.7 pg (27.0-31.0); Mean Corpuscular Volume 82.9 fL (78.0-98.0); Mean Platelet Volume 9.3 fL (7.4-10.4); Platelet Count 131 thou/uL (130-400); RBC Distribution Width 13.3 % (11.5-14.5); Red Blood Cell (RBC) Count 4.61 mill/uL (4.70-6.10)
[2019-02-06 05:19] LABS: Anion Gap 12 mmol/L (10-20); BUN (Urea Nitrogen) 51 mg/dL (8.4-25.7); Calc. Creatinine Clearance 36 mL/min (70-130); Calcium 8.1 mg/dL (7.8-10.44); Carbon Dioxide 31 mmol/L (23-31); Chloride 94 mmol/L (98-107); Estimated GFR-MDRD 74; Glucose 125 mg/dL (83-110); Potassium 3.3 mmol/L (3.5-5.1); Sodium 134 mmol/L (136-145)
[2019-02-06] MEDS: Furosemide 40 MG TAB PO SCH (08:50)
[2019-02-06] MEDS: Enoxaparin Sodium 40 MG/0.4 ML SYRINGE SC SCH (08:51)
[2019-02-06] MEDS: Dexamethasone 4 mg/ml Vial SLOW IVP SCH ×2 (08:51→21:30)
[2019-02-06] MEDS: Dutasteride 0.5 MG CAP PO SCH (08:53)
[2019-02-06] MEDS: Tamsulosin HCl 0.4 MG CAP PO SCH ×2 (08:53→21:30)
[2019-02-06] MEDS: Senokot S 8.6-50 MG TAB PO SCH ×2 (08:54→21:29)
[2019-02-06] MEDS: Bicalutamide 50 MG TAB PO SCH (09:02)
--- NOTE | 2019-02-06 17:37 | PDOC.HOSPP ---
- Subjective Subjective: Seen and examined. Patient's only complain his dry mouth which is causing them to have a that of throat discomfort. This is alleviated when I gave him a sip of water. No family at bedside the same. Patient is very hard of hearing. No other acute complaints at this time. All questions answered in detail. - Objective Vital Signs & Weight: Vital Signs (12 hours) Temp Pulse Resp BP BP Pulse Ox 02/06/19 15:26 98.3 F 102 H 22 H 100/50 L 96 02/06/19 14:52 90 24 H 02/06/19 12:35 98.4 F 93 20 98/54 L 95 02/06/19 12:04 97.6 F 105 H 20 93/50 L 94 L 02/06/19 10:56 108 H 24 H 02/06/19 08:15 98.6 F 90 20 120/57 L 97 02/06/19 07:12 96 02/06/19 07:10 90 28 H 96 Weight Admit Weight 150 lb Weight 107 lb 12.8 oz I&O: 02/05/19 02/06/19 02/07/19 06:59 06:59 06:59 Intake Total 320 240 Output Total 1050 750 Balance -730 -510 Result Diagrams: 02/06/19 04:07 02/06/19 04:07 Radiology Reviewed by me: Yes Hospitalist ROS - Review of Systems All other systems reviewed; all pertinent +/- noted in HPI/Subj - Medication Medications: Active Medications Generic Name Dose Route Start Last Admin Trade Name Freq PRN Reason Stop Dose Admin Acetaminophen 650 mg 02/03/19 10:15 02/06/19 11:03 Tylenol PO Not Given Q8H ARTHUR Albuterol/Ipratropium 3 ml 01/30/19 14:30 02/06/19 14:52 Duoneb NEB 3 ml [id number] ARTHUR Administration Bicalutamide 50 mg 02/02/19 09:00 02/06/19 09:02 Casodex PO 50 mg DAILY ARTHUR Administration Dexamethasone 4 mg 02/06/19 09:00 02/06/19 08:51 Decadron SLOW IVP 4 mg Q12HR ARTHUR Administration Dutasteride 0.5 mg 02/02/19 09:00 02/06/19 08:53 Avodart PO 0.5 mg DAILY ARTHUR Administration Enoxaparin Sodium 40 mg 02/03/19 09:00 02/06/19 08:51 Lovenox SC 40 mg 0900 ARTHUR Administration Furosemide 40 mg 02/02/19 07:30 02/06/19 08:50 Lasix PO 40 mg DAILY-AC ARTHUR Administration Morphine Sulfate 2 mg 02/03/19 10:12 02/05/19 17:08 Morphine SLOW IVP 2 mg Q4H PRN Administration Breakthrough Pain Pantoprazole Sodium 40 mg 02/04/19 09:00 02/06/19 08:54 Protonix PO Not Given DAILY ARTHUR Senna/Docusate Sodium 1 tab 02/02/19 21:00 02/06/19 08:54 Senokot S PO Not Given BID [facility] Sodium Chloride 10 ml 02/01/19 17:27 02/06/19 08:57 Flush - Normal Saline IVF 10 ml PRN PRN Administration Saline Flush Tamsulosin HCl 0.4 mg 02/01/19 21:00 02/06/19 08:53 Flomax PO 0.4 mg BID ARTHUR Administration - Exam General Appearance: NAD Eye: PERRL, anicteric sclera ENT: normocephalic atraumatic, moist mucosa Neck: supple, symmetric, no lymphadenopathy Heart: no murmur, no gallops, no rubs Respiratory: CTAB, no wheezes, no rales, no ronchi Gastrointestinal: soft, non-tender, no guarding, no rigidity Extremities: no clubbing, no edema Skin: no lesions, no rashes Neurological: cranial nerve grossly intact, no weakness, no focal deficits Musculoskeletal: generalized weakness Psychiatric: normal affect, A&O x 3 Hosp A/P (1) Prostate cancer Code(s): C61 - MALIGNANT NEOPLASM OF PROSTATE Status: Acute (2) Bony metastasis Code(s): C79.51 - SECONDARY MALIGNANT NEOPLASM OF BONE Status: Acute (3) Compression fracture Code(s): PDB8499 - Status: Acute (4) Pain Code(s): R52 - PAIN, UNSPECIFIED Status: Acute (5) A-fib Code(s): I48.91 - UNSPECIFIED ATRIAL FIBRILLATION Status: Chronic - Plan Plan: medical unit telemetry compression fracture TLSO brace while out of bed note surgical intervention per neurosurgery patient has metastasis diffusely throughout the spine and hips palliative care consultation, recommendations appreciated discharge planning to hospice versus SNF continue other home medications is able blood pressure control DVT prophylaxis
[2019-02-07] MEDS: Acetaminophen 325 MG TAB PO SCH ×3 (03:28→17:41)
[2019-02-07 04:49] LABS: #Lymphocytes 0.3 thou/uL (1.20-3.40); #Monocytes 0.6 thou/uL (0.11-0.59); #Neutrophils 8.2 thou/uL (1.40-6.50); %Basophils 0.1 % (0.0-1.0); %Eosinophils 0.1 % (0.0-10.0); %Lymphocytes 3.4 % (21.0-51.0); %Monocytes 6.4 % (0.0-10.0); Hemoglobin 12.6 g/dL (14.0-18.0); Mean Corpuscular HGB CONC 31.3 g/dL (32.0-36.0); Mean Corpuscular Hemoglobin 26.4 pg (27.0-31.0); Mean Corpuscular Volume 84.2 fL (78.0-98.0); Mean Platelet Volume 9.2 fL (7.4-10.4); Platelet Count 124 thou/uL (130-400); RBC Distribution Width 13.4 % (11.5-14.5); Red Blood Cell (RBC) Count 4.79 mill/uL (4.70-6.10); White Blood Cell (WBC) Count 9.1 thou/uL (4.8-10.8)
[2019-02-07 05:39] LABS: Anion Gap 17 mmol/L (10-20); BUN (Urea Nitrogen) 53 mg/dL (8.4-25.7); Calc. Creatinine Clearance 39 mL/min (70-130); Calcium 8.5 mg/dL (7.8-10.44); Carbon Dioxide 26 mmol/L (23-31); Chloride 96 mmol/L (98-107); Estimated GFR-MDRD 82; Glucose 115 mg/dL (83-110); Potassium 3.5 mmol/L (3.5-5.1); Sodium 135 mmol/L (136-145)
[2019-02-07] MEDS: Furosemide 40 MG TAB PO SCH (07:26)
--- NOTE | 2019-02-07 07:46 | PRG ---
DATE OF SERVICE: 02/07/2019 SUBJECTIVE: The patient resting, nursing staff at bedside. Final disposition appears to be pending. Family meeting is planned with Hospice/Palliative Care. OBJECTIVE: VITAL SIGNS: Stable I's and O's. Naidu catheter draining 1350 of concentrated yellow urine. ABDOMEN: Soft. No rigidity. No rebound. PERTINENT LABORATORY DATA: White count 9, hemoglobin 12, and platelet 124. Renal function stable. Creatinine 0.88. IMPRESSION AND PLAN: Mr. Watson is an 88-year-old male with diffusely metastatic prostate cancer, urinary retention secondary to benign prostatic hypertrophy and advanced prostate cancer. Palliative Care has been consulted, meeting regarding final hospice, versus [facility] facility transition pending. Continue Casodex and benign prostatic hypertrophy medications. When the patient is ready to be transitioned, he will either require an appointment with Genitourinary or Medical Oncology to receive his Lupron as it is unable to be provided while patient is in-house, which I confirmed with Pharmacy this morning. Prognosis remains poor. Please coordinate appointment with Medical Oncology or Genitourinary to receive Lupron upon final disposition. Job ID: [id number] MTDD
[2019-02-07] MEDS: Dexamethasone 4 mg/ml Vial SLOW IVP SCH ×2 (08:30→21:41)
[2019-02-07] MEDS: Senokot S 8.6-50 MG TAB PO SCH ×2 (08:31→21:41)
[2019-02-07] MEDS: Tamsulosin HCl 0.4 MG CAP PO SCH ×2 (08:31→21:41)
[2019-02-07] MEDS: Enoxaparin Sodium 40 MG/0.4 ML SYRINGE SC SCH (08:31)
[2019-02-07] MEDS: Dutasteride 0.5 MG CAP PO SCH (08:31)
[2019-02-07] MEDS: Bicalutamide 50 MG TAB PO SCH (08:31)
--- NOTE | 2019-02-07 11:02 | PDOC.HOSPP ---
- Subjective Encounter Date: 02/07/19 Encounter Time: 11:00 Subjective: f/u for metastatic prostate carcinoma with severe cord T-spine cord compression , deconditioning and consideration for hospice care vs SNF. No new complaints. - Objective Vital Signs & Weight: Vital Signs (12 hours) Temp Pulse Resp BP Pulse Ox 02/07/19 07:23 98 F 103 H 18 104/57 L 94 L 02/07/19 06:44 92 L 02/07/19 06:41 83 16 92 L 02/07/19 03:32 97.7 F 103 H 16 111/55 L 94 L 02/07/19 02:46 93 L 02/06/19 23:44 97.9 F 90 16 102/53 L 98 02/06/19 23:21 93 L Weight Admit Weight 150 lb Weight 133 lb 14.4 oz I&O: 02/06/19 02/07/19 02/08/19 06:59 06:59 06:59 Intake Total 240 850 Output Total 750 1350 Balance -510 -500 Result Diagrams: 02/07/19 04:25 02/07/19 04:25 EKG Reviewed by me: Yes (Tele - A-fib in 's) Hospitalist ROS - Medication Medications: Active Medications Generic Name Dose Route Start Last Admin Trade Name Freq PRN Reason Stop Dose Admin Acetaminophen 650 mg 02/03/19 10:15 02/07/19 03:28 Tylenol PO 650 mg Q8H ARTHUR Administration Albuterol/Ipratropium 3 ml 01/30/19 14:30 02/07/19 06:41 Duoneb NEB 3 ml [id number] ARTHUR Administration Bicalutamide 50 mg 02/02/19 09:00 02/07/19 08:31 Casodex PO 50 mg DAILY ARTHUR Administration Dexamethasone 4 mg 02/06/19 09:00 02/07/19 08:30 Decadron SLOW IVP 4 mg Q12HR ARTHUR Administration Dutasteride 0.5 mg 02/02/19 09:00 02/07/19 08:31 Avodart PO 0.5 mg DAILY ARTHUR Administration Enoxaparin Sodium 40 mg 02/03/19 09:00 02/07/19 08:31 Lovenox SC 40 mg 0900 ARTHUR Administration Furosemide 40 mg 02/02/19 07:30 02/07/19 07:26 Lasix PO 40 mg DAILY-AC ARTHUR Administration Morphine Sulfate 2 mg 02/03/19 10:12 02/05/19 17:08 Morphine SLOW IVP 2 mg Q4H PRN Administration Breakthrough Pain Pantoprazole Sodium 40 mg 02/04/19 09:00 02/07/19 08:31 Protonix PO 40 mg DAILY ARTHUR Administration Senna/Docusate Sodium 1 tab 02/02/19 21:00 02/07/19 08:31 Senokot S PO 1 tab BID ARTHUR Administration Sodium Chloride 10 ml 02/01/19 17:27 02/07/19 08:32 Flush - Normal Saline IVF 10 ml PRN PRN Administration Saline Flush Tamsulosin HCl 0.4 mg 02/01/19 21:00 02/07/19 08:31 Flomax PO 0.4 mg BID ARTHUR Administration - Exam General Appearance: NAD, awake alert Eye: PERRL, anicteric sclera ENT: normocephalic atraumatic, no oropharyngeal lesions Neck: supple, symmetric, no JVD, no thyromegaly Heart: no gallops, no rubs, irregular Respiratory: CTAB, no wheezes, no rales, no ronchi Gastrointestinal: soft, non-tender, non-distended, normal bowel sounds, no palpable masses Extremities: no cyanosis, no clubbing Skin: normal turgor, no lesions Neurological: cranial nerve grossly intact Neurological - other findings: No movement of RLE, minimal movement in LLE Musculoskeletal: generalized weakness Hosp A/P (1) Cord compression myelopathy Code(s): G95.20 - UNSPECIFIED CORD COMPRESSION Status: Acute Plan: No surgical intervention per Neurosurgery, conservative mgmt, pain control, PT as tolerated, continue Dexamethasone (2) Compression fracture Code(s): PFX8590 - Status: Acute Plan: T5 compression fx, TLSO brace (3) Prostate cancer Code(s): C61 - MALIGNANT NEOPLASM OF PROSTATE Status: Chronic Plan: Widely metastatic process, end-stage, continue Casodex (4) A-fib Code(s): I48.91 - UNSPECIFIED ATRIAL FIBRILLATION Status: Chronic Plan: Rate controlled currently, ? no beta-joelle or CCB currently, not a candidate for anticoagulation - Plan PT/OT, family welfare social work professor, DVT proph w/SCDs Continue pain control CM for SNF options Code Status DNAR Continue Dexamethasone Continue Casodex Appreciate Palliative care services
[2019-02-08] MEDS: Acetaminophen 325 MG TAB PO SCH ×3 (02:06→20:36)
[2019-02-08] MEDS ORDERED: Haloperidol Lactate 5 MG/ML VIAL IM SCH (05:30)
[2019-02-08] MEDS: Morphine 2 MG/ML SYRINGE SLOW IVP PRN ×3 (07:52→19:20)
[2019-02-08] MEDS: Dexamethasone 4 mg/ml Vial SLOW IVP SCH (07:53)
[2019-02-08] MEDS: Bicalutamide 50 MG TAB PO SCH (07:53)
[2019-02-08] MEDS: Enoxaparin Sodium 40 MG/0.4 ML SYRINGE SC SCH (07:53)
[2019-02-08] MEDS: Dutasteride 0.5 MG CAP PO SCH (07:53)
[2019-02-08] MEDS: Senokot S 8.6-50 MG TAB PO SCH (07:54)
[2019-02-08] MEDS: Tamsulosin HCl 0.4 MG CAP PO SCH (07:54)
[2019-02-08] MEDS: Furosemide 40 MG TAB PO SCH (07:54)
--- NOTE | 2019-02-08 08:42 | PRG ---
DATE OF SERVICE: 02/08/2019 SUBJECTIVE: The patient is confused, events overnight reviewed. The patient was trying to remove his Naidu catheter. There is some dry blood at the meatus. Naidu itself is draining clear. He appears quite more agitated and received Haldol last night. There is an obvious mental status decline. Since admission, he has lost about 20 pounds. OBJECTIVE: VITAL SIGNS: Stable at temperature 97.6, pulse 102, respiratory rate 22, oxygen saturation 94% on 2 L, and blood pressure 130/62. GENERAL: The patient is an elderly cachectic male. ABDOMEN: Scaphoid. No suprapubic tenderness. GENITOURINARY: Naidu catheter adequately secured, dry blood at the meatus. Catheter itself draining clear yellow urine. I did secure his Naidu catheter with tape and diaper placed at all times. Nursing staff to keep Naidu catheter out of reach. LABORATORY DATA: No new labs today. IMPRESSION AND PLAN: 1. Mr. Watson is an 88-year-old male, cachectic, frail with stage D metastatic extensive prostate cancer, benign prostatic hyperplasia with obstruction. 2. Multiple metastases noted on CT, bone scan. 3. Declining mental status /clinical status, it is my opinion that the patient is high risk to transition to a assisted facility. He has high risk for readmission at a residential facility, where I think he will decompensate quickly. Moreover, I am concerned that he will pull out his Naidu catheter, resulting in significant hematuria. patient will likely have chronic retention, given size of his prostate, significantly enlarged periprostatic tissue with diffuse metastasis, and cord compression which can result in neurogenic component in addition to anatomical obstruction. Continue Casodex, benign prostatic hyperplasia medications for now. I did order a 24- hour sitter at bedside while in-house, catheter secured. Reached out to Dr. Mcdonald, who will assess the patient and agree, patient with likely do better an inpatient hospice setting. Moreover, I contacted the daughter via phone informed her regarding declining status of her father. She states that she is well aware of hospice situation as her mother was terminally ill, and desires her father to transition to hospice care. I encouraged her to ask questions, answered to her satisfaction. Call if any questions or concerns, I will be off service rest of the week. Dr. Godfrey covering me Job ID: [id number] [facility]
[2019-02-08 15:20] VITALS: BMI 20.9
--- NOTE | 2019-02-08 15:22 | PDOC.HOSPP ---
- Subjective Subjective: Seen and examined. Discuss case with urology who knows the patient well. Urology agreeing that the patient is clinically deteriorated and is most appropriate for inpatient hospice. Pain issues uncontrolled. Patient agitated and pulling out Chua catheter. Waxing and waning confusion. Will work towards inpatient hospice versus Gen. inpatient hospice at [facility]. - Objective Vital Signs & Weight: Vital Signs (12 hours) Temp Pulse Resp BP Pulse Ox 02/08/19 11:03 97.8 F 89 18 116/55 L 94 L 02/08/19 07:19 96.6 F L 89 20 109/54 L 94 L 02/08/19 07:12 94 L 02/08/19 07:10 102 H 22 H 94 L Weight Admit Weight 150 lb Weight 133 lb 14.4 oz I&O: 02/07/19 02/08/19 02/09/19 06:59 06:59 06:59 Intake Total 850 800 Output Total 1350 1150 Balance -500 -350 Result Diagrams: 02/07/19 04:25 02/07/19 04:25 Hospitalist ROS - Review of Systems All other systems reviewed; all pertinent +/- noted in HPI/Subj - Medication Medications: Active Medications Generic Name Dose Route Start Last Admin Trade Name Freq PRN Reason Stop Dose Admin Acetaminophen 650 mg 02/03/19 10:15 02/08/19 10:06 Tylenol PO Not Given Q8H ARTHUR Albuterol/Ipratropium 3 ml 01/30/19 14:30 02/08/19 10:44 Duoneb NEB Not Given [id number] ARTHUR Bicalutamide 50 mg 02/02/19 09:00 02/08/19 07:53 Casodex PO 50 mg DAILY ARTHUR Administration Dutasteride 0.5 mg 02/02/19 09:00 02/08/19 07:53 Avodart PO 0.5 mg DAILY ARTHUR Administration Enoxaparin Sodium 40 mg 02/03/19 09:00 02/08/19 07:53 Lovenox SC 40 mg 0900 ARTHUR Administration Furosemide 40 mg 02/02/19 07:30 02/08/19 07:54 Lasix PO 40 mg DAILY-AC ARTHUR Administration Morphine Sulfate 2 mg 02/03/19 10:12 02/08/19 11:47 Morphine SLOW IVP 2 mg Q4H PRN Administration Breakthrough Pain Pantoprazole Sodium 40 mg 02/04/19 09:00 02/08/19 07:54 Protonix PO 40 mg DAILY ARTHUR Administration Senna/Docusate Sodium 1 tab 02/02/19 21:00 02/08/19 07:54 Senokot S PO 1 tab BID ARTHUR Administration Sodium Chloride 10 ml 02/01/19 17:27 02/07/19 08:32 Flush - Normal Saline IVF 10 ml PRN PRN Administration Saline Flush Tamsulosin HCl 0.4 mg 02/01/19 21:00 02/08/19 07:54 Flomax PO 0.4 mg BID ARTHUR Administration - Exam General Appearance: ill appearing Eye: PERRL, anicteric sclera ENT: normocephalic atraumatic, moist mucosa Neck: supple, no lymphadenopathy Heart: no murmur, no gallops, no rubs Respiratory: CTAB, no wheezes, no rales, no ronchi Gastrointestinal: soft, non-tender, no guarding, no rigidity Extremities: 1+ LE edema Skin: no lesions, no rashes Neurological: cranial nerve grossly intact Neurological - other findings: LE Plegia Musculoskeletal: generalized weakness Psychiatric: A&O x 3 (Patient has memorized A&O questions and recites them without being prompted) Hosp A/P (1) Prostate cancer Code(s): C61 - MALIGNANT NEOPLASM OF PROSTATE Status: Chronic (2) Bony metastasis Code(s): C79.51 - SECONDARY MALIGNANT NEOPLASM OF BONE Status: Acute (3) Compression fracture Code(s): FLO2655 - Status: Acute (4) Pain Code(s): R52 - PAIN, UNSPECIFIED Status: Acute (5) A-fib Code(s): I48.91 - UNSPECIFIED ATRIAL FIBRILLATION Status: Chronic - Plan Plan: medical unit telemetry, stable to Medical unit D/c planning to inpatient hospice vs General inpatient hospice at [facility] Urology consultation, recommendations appreciated Start Fentanyl patch for uncontrolled pain Start Seroquel for mood stabilization, to keep the patient calm so he does not attempt to self remove his chua again, elevated fall risk Stop invasive treatment, no further lab draws, no further injectable anticoagulation for DVT PPX Symptomatic care only No restrictions on diet, pleasure feeding compression fracture TLSO brace while out of bed, if tolerated no surgical intervention per neurosurgery patient has metastasis diffusely throughout the spine and hips palliative care consultation, recommendations appreciated continue other home medications is able
[2019-02-08 19:25] VITALS: BP 109/58; TEMP 98
--- NOTE | 2019-02-09 01:48 | PQF ---
IGNACIO MOJICA ERIK [id number] [id number] CLINICAL DOCUMENTATION CLARIFICATION FORM: POST DISCHARGE Addendum to original discharge summary date: ____ Late entry note date: __ DATE: 02/09/19 ATTN: Harry Reich Please exercise your independent, professional judgment in responding to the clarification form. Clinical indicators are provided on the bottom of this form for your review Please check appropriate box(s): [ ] Acute Respiratory Failure: [ ] with Hypoxia[ ] with Hypercapnia [ XX ] Acute On Chronic Respiratory Failure: [ ] with Hypoxia [ ] with Hypercapnia [ ] Acute Respiratory Failure due to: (etiology) [ ] ARDS (Acute Respiratory Distress Syndrome) [ ] Chronic Respiratory Failure only [ ] with Hypoxia [ ] with Hypercapnia [ ] Hypoxia [ ] Other diagnosis [ ] Unable to determine In addition, please specify: Present on Admission (POA): [ XX ] Yes [ ] No [ ] Unable to determine For continuity of documentation, please document condition throughout progress notes and discharge summary. Thank You. CLINICAL INDICATORS - SIGNS / SYMPTOMS / LABS H&P p3 01/30 Dr Kimble Shortness of breath with signs of emphysema and possible congestive heart failure H&P p3 01/30 Dr Kimble His pulse oximetry was down to low 90s on room air Vital Sign 02/05 Resp rate 25, O2 sat 94% Chest X-ray 02/05 Findings: Mild Pulmonary edema. Small effusions RISK FACTORS H&P p1 01/30 88 year-old H&P p1 01/30 Congestive Heart failure H&P p3 01/30 Emphysema H&P p3 01/30 Prostate malignancy H&P p3 01/30 Bone Mets TREATMENTS: MAY 24 DuoNeb q4 hours MAY 24 Prednisone 40mg OD Respiratory Panel O2 4.5 lpm via nasal cannula (This form is maintained as a part of the permanent medical record) 2014 [employer] All Rights Reserved [email or web address] [email or web address] [not provided] MTDD
[2019-02-09] MEDS ORDERED: Dexamethasone 4 mg/ml Vial SLOW IVP SCH (09:00)
== END 2019-02-08 20:10 | disposition hospice, inpatient (51) | DRG 542 ==
LOC: ERS 08:09 → 2NO 14:17
PROVIDERS: ADMIT Internal Medicine; ATTEND Internal Medicine
DX: C79.51 Secondary malignant neoplasm of bone (principal); I50.33 Acute on chronic diastolic (congestive) heart failure; J96.20 Acute and chronic respiratory failure, unspecified whether with hypoxia or hypercapnia; I48.20 Chronic atrial fibrillation, unspecified; E87.3 Alkalosis; G95.29 Other cord compression; M84.58XA Pathological fracture in neoplastic disease, other specified site, initial encounter for fracture; Z66 Do not resuscitate; Z51.5 Encounter for palliative care; C61 Malignant neoplasm of prostate; H91.90 Unspecified hearing loss, unspecified ear; R33.9 Retention of urine, unspecified; N40.1 Benign prostatic hyperplasia with lower urinary tract symptoms; R33.8 Other retention of urine; K40.90 Unilateral inguinal hernia, without obstruction or gangrene, not specified as recurrent; N28.1 Cyst of kidney, acquired; J43.9 Emphysema, unspecified; Z87.891 Personal history of nicotine dependence; Z23 Encounter for immunization; Z79.899 Other long term (current) drug therapy; Z79.82 Long term (current) use of aspirin; Z79.51 Long term (current) use of inhaled steroids; Z91.14 Patient's other noncompliance with medication regimen
CPT/HCPCS: 36415; 51702; 70450; 71045; 72141; 72146; 74018; 74178; 76770; 78306; 80048; 80053; 81003; 81015; 82550; 83880; 84484; 85025; 90471; 90662; 93005; 93306; 93798; 94640; 96374; 96375; A9503; G0008; G0103; J1100; J1630; J1650; J1940; J2270; J2930; J7512; J7620; L0174; L0200; L0639; Q9967

== ENCOUNTER 2019-02-08 20:17 | Inpatient (IN) | payer OTHER ==
[2019-02-08] MEDS ORDERED: Morphine IR Tab 15 MG TAB PO PRN (20:32)
[2019-02-08] MEDS ORDERED: Ondansetron ODT 4 MG TAB PO PRN (20:32)
[2019-02-08] MEDS ORDERED: Senokot 8.6 MG TAB PO PRN (20:32)
[2019-02-08] MEDS ORDERED: Ondansetron PF 4 MG/2 ML Vial IVP PRN (20:32)
[2019-02-08] MEDS ORDERED: Lorazepam 1 MG TAB PO PRN (20:32)
[2019-02-08] MEDS ORDERED: Acetaminophen 650 MG Suppository PR PRN (20:32)
[2019-02-08] MEDS ORDERED: Scopolamine 1.5 mg/72 hour Patch TOP PRN (20:32)
[2019-02-08] MEDS ORDERED: Acetaminophen 325 MG TAB PO PRN (20:32)
[2019-02-08] MEDS ORDERED: Haloperidol Lactate 5 MG/ML VIAL SLOW IVP PRN (20:34)
[2019-02-08] MEDS ORDERED: Morphine 2 MG/ML SYRINGE SLOW IVP PRN (20:35)
[2019-02-08] MEDS ORDERED: Senokot S 8.6-50 MG TAB PO PRN (20:36)
[2019-02-08] MEDS: Lorazepam 2 MG/ML VIAL SLOW IVP PRN (22:25)
[2019-02-09 08:19] VITALS: BP 96/55; TEMP 98.2
[2019-02-09] MEDS: Lorazepam 2 MG/ML VIAL SLOW IVP PRN (14:11)
--- NOTE | 2019-02-10 04:11 | DIS ---
DATE OF ADMISSION: 02/08/2019 DATE OF DISCHARGE: 02/09/2019 REASON FOR HOSPITALIZATION: Shortness of breath status post fall. SIGNIFICANT FINDINGS: The patient was found to have metastatic prostate cancer with extensive osseous metastasis resulting in pathologic fractures and spinal cord compression resulting in lower extremity paralysis. PROCEDURES PERFORMED AND TREATMENTS RENDERED: The patient had maximum medical therapy and was seen by Internal Medicine, and Neurosurgery-please see full History and Physical, Consultation, and Progress Notes for details. Neurosurgery ultimately recommending that the patient was not a surgical candidate and that medical management alone should be pursued. The patient was also seen by Urology for chronic followup on his very enlarged prostate and Urology did offer significant benefits to this patient's clinical condition and course. Urology was very helpful in maintaining Naidu catheter despite the patient's occasional confusion and attempts to remove his Naidu catheter. After long discussions with the patient, patient family, and Palliative Care, he was recommended and agreed upon by all physicians and the patient's family that aggressive measures are futile in this case with stage IV prostate cancer with widespread metastasis and the patient was recommended for inpatient hospice care. The patient was transitioned to general inpatient hospice at [facility] on 02/08/2019 under the care of myself, Dr. Scott Mcdonald. After I adjusted the patient's medications including giving the patient adequate pain control with fentanyl transdermal patch, the patient was much more comfortable and he was no longer requiring a sitter, at this point, the patient was recommended safe for discharge to inpatient hospice. The patient was transferred to inpatient hospice on 02/09/2019 per family's wishes. CONDITION ON DISCHARGE: Critical. SPECIFIC INSTRUCTIONS FOR THE PATIENT/FAMILY: 1. The patient recommended safe for transfer immediately to inpatient hospice and recommended to have Hospice physician coordinate all future care. The patient's terminal condition would warrant that he would not be recommended to return to acute care hospital for any future problems. 2. The patient is recommended to have appropriate titration in pain medication including possibility of increasing fentanyl transdermal patch, IV morphine, oral morphine, and any other symptomatic pain medication. 3. The patient is recommended to have anxiolytic therapy which can include but not limited to IV and oral Ativan, Xanax, mood stabilizing medications such as Seroquel have given the patient good symptomatic relief and he has been much less agitated since these were started. 4. The patient is recommended to have all other symptomatic therapy including breathing treatments, stool softeners, or any other medications with a comfort emphasis only. 5. The patient is recommended to stop all other aggressive medications and only have comfort medications at this time. 6. After the patient expires in the near future, the patient will be transferred to mortuary of patient's family's choosing. DISCHARGE MEDICATIONS: Please see full discharge medication list for details. Greater than 45 minutes spent coordinating care and discharge process for this patient. Job ID: [id number]
--- NOTE | 2019-02-10 23:57 | PQF ---
IGNACIO MOJICA ERIK [id number] CLINICAL DOCUMENTATION CLARIFICATION FORM: POST DISCHARGE Addendum to original discharge summary date: ____ Late entry note date: __ DATE: 02/10/19 ATTN: Scott Cabrera Please exercise your independent, professional judgment in responding to the clarification form. Clinical indicators are provided on the bottom of this form for your review Please check appropriate box(s): [ XX ] Acute Metabolic Encephalopathy [ ] Acute Toxic Encephalopathy [ ] Transient Alteration of Awareness [ ] Other diagnosis [ ] Unable to determine In addition, please specify: Present on Admission (POA): [ XX ] Yes [ ] No [ ] Unable to determine For continuity of documentation, please document condition throughout progress notes and discharge summary. Thank You. CLINICAL INDICATORS - SIGNS / SYMPTOMS / LABS Nursing Assessment 01/08 Neurological WDP except for Drowsy, restless, unable to comprehend DS p1 02/09 Dr Mcdonald Urology was very helpful in maintaining Chua Catheter despite the patient's occasional Confusion and attempts to remove his chua catheter DS p1 02/09 Dr Mcdonald Palliative Care was recommended and agreed upon by all physicians and the patient's family that aggressive measures are futile in this case with stage IV prostate cancer and widespread metastasis RISK FACTORS DS p1 02/09 Metastatic prostate cancer DS p1 02/09 Osseous metastatic resulting in Pathologic fractures and spinal cord compression resulting in LE paralysis TREATMENTS: DS p1 02/09 - Palliative care MAY 24 Lorazepam IV (This form is maintained as a part of the permanent medical record) 2014 [employer]. All Rights Reserved [email or web address] [not provided] [email or web address]
== END 2019-02-09 15:08 | disposition hospice, inpatient (51) | DRG 542 ==
LOC: 2NO 20:17 → T4-A 21:27
PROVIDERS: ADMIT Internal Medicine; ATTEND Internal Medicine
DX: C79.51 Secondary malignant neoplasm of bone (principal); G93.41 Metabolic encephalopathy; M84.58XA Pathological fracture in neoplastic disease, other specified site, initial encounter for fracture; G95.29 Other cord compression; G82.20 Paraplegia, unspecified; C61 Malignant neoplasm of prostate; Z51.5 Encounter for palliative care
CPT/HCPCS: J2060